=== PATIENT | male | born 1930 | race Caucasian/White ===

== ENCOUNTER 2017-05-08 11:36 | Inpatient (IN) ==
--- NOTE | 2017-05-08 11:59 | Emergency Department Note ---
Disposition Clinical Impression: Hyponatremia, Dysesthesia Disposition: Admitted As Inpatient Condition: Fair Time of Disposition: 15:36 General Adult HPI - General Chief complaint: ED Neuro Symptoms/Deficit Stated complaint: "numb, cant walk" Time Seen by Provider: 05/08/17 11:54 Source: patient, family Limitations: no limitations Nursing Notes Reviewed: Yes Vital Signs Reviewed: Yes - History of Present Illness HPI Narrative: Mr. Lopez, an 86yo male, presents from home for evaluation of sensation of imbalance, "bubbling" sensation in his lower extremities. Onset 2 days ago. Patient's sensation of imbalance has been present for the last 2 days. This morning, he fell forward onto his knees from a sitting position. Patient is also edentulous. 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 He previously was eating soft foods however, he is had increasing pain even with this. Patient's sons have attempted to supplement his diet with more soups as well as ensure liquid supplementation. Patient's sons are bedside. At baseline, patient ambulates without assistance. PMH: Dementia, GERD, hypertension, hyperlipidemia, prior MT, remote history of prostate cancer (finished tx 2008) Social: Patient lives at home alone. ROS: Pos: as above Neg: fever, chills, incontinence of bowel or bladder, trauma Pain Scale: 4 - Related Data Home Medications Medication Instructions Recorded Confirmed Lidocaine HCl [Lidocaine HCl 15 ml MM TID PRN 05/08/17 05/08/17 Viscous] Mv-Mn/FA/Vit K/Lycop/Lut/Coq10 1 tab PO DAILY 05/08/17 05/08/17 [Daily Multivitamin Capsule] [place]-3/Dha/Epa/Fish Oil [Fish Oil 1 tab PO DAILY 05/08/17 05/08/17 1,000 mg Softgel] Ranitidine HCl [Zantac] 150 mg PO BID 05/08/17 05/08/17 Simvastatin [Zocor] 40 mg PO DAILY 05/08/17 05/08/17 Triamterene/Hydrochlorothiazid 1 tab PO DAILY 05/08/17 05/08/17 [Dyazide 37.5-25 Capsule] Allergies Allergy/AdvReac Type Severity Reaction Status Date / Time No Known Allergies Allergy Verified 05/08/17 15:00 All systems ED: reviewed and negative except as stated. Review of Systems: As Per HPI Past Medical History - Past Medical History Medical history: Reports: cancer, dementia, GERD, hyperlipidemia, hypertension, myocardial infarction Psychiatric history: Reports: no psych history - Social History Smoking Status: Never smoker Alcohol use: Reports: none Drug use: Reports: none Physical Exam Vital Signs Reviewed General: Patient is alert, oriented, and in no acute distress. HEENT: No facial asymmetry. Head is normocephalic and atraumatic. PERRLA, EOMI. oral mucosa moist. Trachea midline. Cardiovascular: Heart regular rate and rhythm without clicks, rubs, gallops, or murmurs. No JVD. PMI nondisplaced. Lateral radial and posterior tibial pulses 2/40. No pedal edema. Respiratory: Symmetric chest rise with good respiratory effort. Bilateral breath sounds are clear without wheezing, crackles, or rhonchi. Abdomen: Bowel sounds present normoactive x-4 quadrants. Abdomen is soft, nondistended, and nontender. No organomegaly noted. Musculoskeletal: Spontaneously moving all extremities. Upper and lower extremity strength is 4/5 bilaterally. Neuro: Alert and oriented x4. Lower extremity sensation to light touch and proprioception intact. Psych: Patient's affect is appropriate for situation. - General Limitations: no limitations General appearance: alert, in no apparent distress Course Course Narrative: EGD performed 04/28/2017 showed small hiatal hernia and gastritis. Indication: Emergent endoscopy for possible esophageal food impaction. Suspect patient's difficulty walking and imbalance secondary to a dysesthesia from his tingling in his feet which she describes as bubbling. My physical exam, he had mild weakness generalized. Suspect he had difficulty with strength of his hip extension while rising from a seated chair causing him to fall forward onto his hands and knees. Patient is hyponatremic. Laboratory and imaging workup otherwise unremarkable. I discussed the above with the patient's son and the patient. Their agreement to admission for continued evaluation and management. I discussed the patient with the admitting hospitalist who agrees to accept the patient for continued evaluation and management of hyponatremia. Head CT 05/08/17 12:14 IMPRESSION: No acute intracranial abnormality. D/ / Linda Leigh Cha, MD / Linda Leigh Cha, MD Interpreting Provider: Linda Leigh Cha, MD Lumbar Spine CT 05/08/17 12:14 IMPRESSION: No acute osseous abnormality on noncontrast CT of the lumbar spine. The patient has mild degenerative changes and multilevel mild disc bulges. No bony destruction is noted. Other findings as above. D/ / 05/08/2017 13:53:00 Mel Yadav MD / viet Interpreting Provider: Mel Yadav MD Pelvis CT 05/08/17 12:14 IMPRESSION: No evidence of fracture. Large stool burden. D/ / Breezy Ndiaye MD / Breezy Ndiaye MD Interpreting Provider: Breezy Ndiaye MD Vital Signs Temperature 98 F 05/08/17 11:40 Pulse Rate 69 05/08/17 11:40 Respiratory Rate 14 05/08/17 11:40 Blood Pressure 117/71 05/08/17 11:40 O2 Sat by Pulse Oximetry 94 05/08/17 11:40 Temperature 97.9 F 05/08/17 17:27 Pulse Rate 62 05/08/17 17:27 Respiratory Rate 16 05/08/17 17:27 Blood Pressure 155/66 05/08/17 17:27 O2 Sat by Pulse Oximetry 95 05/08/17 17:58 Oxygen Delivery Oxygen Delivery Room Air Medical Decision Making - Medical Records Medical records reviewed: Yes I reviewed the patient's medical records. - Lab Data Result diagrams: 05/08/17 13:35 05/08/17 13:08 Lab Results 05/08/17 05/08/17 05/08/17 Range/Units 10:05 13:08 13:08 WBC (4.3-11.1) K/mcL RBC (4.19-5.50) M/mcL Hgb (12.9-16.9) g/dL Hct (37.5-50.1) % MCV (83.0-100.0) fL MCH (28.0-33.3) pg MCHC (31.6-35.5) g/dL RDW (11.5-14.5) % Plt Count (140-400) K/mcL MPV (9.4-12.4) fL Immature Gran % (0-4) % Seg Neutrophils % % Lymphocytes % % Monocytes % % Eosinophils % % Basophils % % Neutrophils # (1.6-8.9) K/mcL Lymphocytes # (0.6-4.6) K/mcL Monocytes # (0.0-1.3) K/mcL Eosinophils # (0.0-0.6) K/mcL Basophils # (0.0-0.2) K/mcL Immature Plt Fraction (1.1-6.1) % ESR (0-10) mm/hr Sodium 129 L (136-145) mEq/L Potassium 3.7 (3.5-5.1) mEq/L Chloride 91 L (98-107) mEq/L Carbon Dioxide 31 H (23-29) mEq/L BUN 12 (8-23) mg/dL Creatinine 0.90 (0.70-1.30) mg/dL Est GFR ( Amer) > 60 (> 60) Est GFR (Non-Af Amer) > 60 (> 60) BUN/Creatinine Ratio 13 (6-26) Glucose 104 (70-105) mg/dL Calculated Osmolality 268 L (280-300) Calcium 9.6 (8.6-10.3) mg/dL Magnesium 1.8 (1.6-2.6) mg/dL Creatine Kinase 22 L (30-223) Units/L C-Reactive Protein < 5 (Less than 10) mg/L Urine Color (Yellow) Urine Clarity (Clear) Urine pH (5.0-8.0) pH Units Ur Specific [place] (1.010-1.025) Urine Protein (Neg-Trace) mg/dL Urine Glucose (UA) (Normal) mg/dL Urine Ketones (Negative) mg/dL Urine Blood (Negative) Urine Nitrite (Negative) Urine Bilirubin (Negative) Urine Urobilinogen (Normal) mg/dL Ur Leukocyte Esterase (Negative) Urine Microscopic RBC (0-3) per hpf Urine Microscopic WBC (0-3) per hpf Ur Squamous Epith Cells (None-Few) per lpf Urine Bacteria (None-Few) per hpf Hyaline Casts (None-Few) per lpf Ur Culture Indicated? (NO) Specimen Rejected Clotted 05/08/17 05/08/17 05/08/17 Range/Units 13:35 13:35 14:19 WBC 4.9 (4.3-11.1) K/mcL RBC 4.41 (4.19-5.50) M/mcL Hgb 13.1 (12.9-16.9) g/dL Hct 38.0 (37.5-50.1) % MCV 86.2 (83.0-100.0) fL MCH 29.7 (28.0-33.3) pg MCHC 34.5 (31.6-35.5) g/dL RDW 13.2 (11.5-14.5) % Plt Count 353 (140-400) K/mcL MPV 8.4 L (9.4-12.4) fL Immature Gran % 0.2 (0-4) % Seg Neutrophils % 55.7 % Lymphocytes % 26.8 % Monocytes % 12.6 % Eosinophils % 3.7 % Basophils % 1.0 % Neutrophils # 2.7 (1.6-8.9) K/mcL Lymphocytes # 1.3 (0.6-4.6) K/mcL Monocytes # 0.6 (0.0-1.3) K/mcL Eosinophils # 0.2 (0.0-0.6) K/mcL Basophils # 0.1 (0.0-0.2) K/mcL Immature Plt Fraction 1.7 (1.1-6.1) % ESR 35 H (0-10) mm/hr Sodium (136-145) mEq/L Potassium (3.5-5.1) mEq/L Chloride (98-107) mEq/L Carbon Dioxide (23-29) mEq/L BUN (8-23) mg/dL Creatinine (0.70-1.30) mg/dL Est GFR ( Amer) (> 60) Est GFR (Non-Af Amer) (> 60) BUN/Creatinine Ratio (6-26) Glucose (70-105) mg/dL Calculated Osmolality (280-300) Calcium (8.6-10.3) mg/dL Magnesium (1.6-2.6) mg/dL Creatine Kinase (30-223) Units/L C-Reactive Protein (Less than 10) mg/L Urine Color Yellow (Yellow) Urine Clarity Cloudy A (Clear) Urine pH 8.0 (5.0-8.0) pH Units Ur Specific [place] 1.013 (1.010-1.025) Urine Protein Negative (Neg-Trace) mg/dL Urine Glucose (UA) Normal (Normal) mg/dL Urine Ketones Negative (Negative) mg/dL Urine Blood Negative (Negative) Urine Nitrite Negative (Negative) Urine Bilirubin Negative (Negative) Urine Urobilinogen Normal (Normal) mg/dL Ur Leukocyte Esterase Negative (Negative) Urine Microscopic RBC 0-3 (0-3) per hpf Urine Microscopic WBC 0-3 (0-3) per hpf Ur Squamous Epith Cells Few (None-Few) per lpf Urine Bacteria None Seen (None-Few) per hpf Hyaline Casts None Seen (None-Few) per lpf Ur Culture Indicated? NO (NO) Specimen Rejected - EKG Data EKG #1 EKG attestation: Yes I reviewed and interpreted this EKG. EKG results narrative: EKG dated 05/08/17 at 11:56 interpreted as sinus rhythm with a rate of 61. First -degree AV block with MT 270. Normal axis. Nonspecific ST-T changes. Compared to previous EKG dated showing no acute ischemic changes.
[2017-05-08 13:42] LABS: BUN/Creatinine Ratio 13 (6-26); Blood Urea Nitrogen 12 mg/dL (8-23); Calcium 9.6 mg/dL (8.6-10.3); Carbon Dioxide 31 mEq/L (23-29); Chloride 91 mEq/L (98-107); Glucose 104 mg/dL (70-105); Magnesium 1.8 mg/dL (1.6-2.6); Osmolality,Calculated 268 (280-300); Potassium 3.7 mEq/L (3.5-5.1); Sodium 129 mEq/L (136-145); eGFR For African Americans > 60 (> 60); eGFR For Non-African Americans > 60 (> 60)
[2017-05-08 13:42] LABS: Basophils # 0.1 K/mcL (0.0-0.2); Eosinophils # 0.2 K/mcL (0.0-0.6); Eosinophils % 3.7 %; Immature Granulocytes % 0.2 % (0-4); Immature Platelets 1.7 % (1.1-6.1); Lymphocytes # 1.3 K/mcL (0.6-4.6); Lymphocytes % 26.8 %; Mean Corpuscular HGB Conc 34.5 g/dL (31.6-35.5); Mean Corpuscular Hemoglobin 29.7 pg (28.0-33.3); Mean Corpuscular Volume 86.2 fL (83.0-100.0); Mean Platelet Volume 8.4 fL (9.4-12.4); Monocytes # 0.6 K/mcL (0.0-1.3); Monocytes % 12.6 %; Neutrophils # 2.7 K/mcL (1.6-8.9); Platelet Count 353 K/mcL (140-400); Red Blood Count 4.41 M/mcL (4.19-5.50); Red Cell Distribution Width 13.2 % (11.5-14.5); Segmented Neutrophils % 55.7 %
[2017-05-08 13:44] LABS: Hemoglobin 13.1 g/dL (12.9-16.9)
--- NOTE | 2017-05-08 14:05 | Emergency Department Note ---
START Narrative - START START: I examined this patient and my medical decision-making was reviewed with the Resident Physician. I agree with the documented findings, disposition and treatment plan as described except to the extent set forth below. 86-year-old male presents to the ER with dysesthesias and tingling in his legs bilaterally. Patient feels weak in his legs bilaterally as well. Denies any bowel or bladder incontinence. No recent change in medications. Denies any problems with his arms. No facial involvement. No speech or vision changes. DTR's intact. CT's nonacute no mag or K problems will admit neuro consult as well pt lives alone and is at high risk of falls
[2017-05-08 14:26] LABS: Bilirubin,Urine Negative (Negative); Blood,Urine Negative (Negative); Clarity,Urine Cloudy (Clear); Color,Urine Yellow (Yellow); Glucose,Urine (UA) Normal (Normal); Ketones,Urine Negative (Negative); Leukocyte Esterase,Urine Negative (Negative); Nitrite,Urine Negative (Negative); Protein,Urine Negative (Neg-Trace); Specific Gravity,Urine 1.013 (1.010-1.025); Urobilinogen,Urine Normal (Normal)
[2017-05-08 14:28] LABS: Bacteria,Urine None Seen per hpf (None-Few); Hyaline Casts,Urine None Seen per lpf (None-Few); RBC,Urine 0-3 per hpf (0-3); Squamous Epithelial Cell,Urine Few per lpf (None-Few); WBC,Urine 0-3 per hpf (0-3)
[2017-05-08] MEDS ORDERED: Acetaminophen 325 MG TABLET PO PRN (15:48)
[2017-05-08] MEDS ORDERED: *HR* OxyCODONE Immed Rel 5 MG TABLET PO PRN (15:48)
[2017-05-08] MEDS ORDERED: Ondansetron 4 MG/2 ML VIAL IVP PRN (15:48)
[2017-05-08] MEDS ORDERED: Naloxone 0.4 MG/ML INJ IVP PRN (15:48)
--- NOTE | 2017-05-08 15:54 | Internal Med History&Physical ---
Date of Encounter: 05/08/17 Time of Encounter: 15:52 Assessment and Plan (1) Generalized weakness Current visit: Yes Status: Acute Unclear etiology Since the patient is on simvastatin and is complaining of myalgias we will check a CK, hold statin Check MRIs of the C-spine and thoracic and lumbar spines Unlikely [place], monitor with neuro checks Check orthostatics Fall precautions Physical therapy evaluation Omeprazole for J prophylaxis and symptoms heparin for DVT prophylaxis. The patient will be admitted for observation. Full code. Time spent on this admission 40 minutes (2) Hyperlipidemia Current visit: Yes Status: Acute Qualifiers: Hyperlipidemia type: unspecified Qualified Code(s): E78.5 - Hyperlipidemia , unspecified (3) Hyponatremia Current visit: Yes Status: Acute Check urine sodium and osmolality Monitor sodium, continue fluids for now (4) Dysesthesia Current visit: Yes Status: Acute Consider neurology consult if not improving (5) Hypertension Current visit: Yes Status: Acute Qualifiers: Hypertension type: essential hypertension Qualified Code(s): I10 - Essential (primary) hypertension Internal Medicine - H&P: HPI Chief complaint: Generalized weakness and pain Admitted From: Emergency Dept History of present illness: Mr. Lopez is a 86 year old male with a past medical history HYPERTENSION, hyperlipidemia, dementia, CAD, prostate cancer, comes to the emergency room complaining of bilateral leg weakness and numbness that started less than 2 days ago. Admitted today, he fell on his knees. Patient has dementia and is a very poor historian. Family helped with the story. Patient is in a stocking and is complaining of generalized weakness but no CK has been done yet. Also leg weakness his progressing. CT scan of the head, lumbar spine and pelvis showed only mild degenerative changes with no acute findings. Sodium is 129 chloride is 91. Patient complains of mandibular pain thought to be due to mandibular degeneration. Denies any chest pain or shortness of breath. No fevers Past Med Surg Social Fam HX - Past Medical History Medical history: cancer (Prostate cancer), coronary artery disease, dementia, GERD, hyperlipidemia, hypertension, myocardial infarction, other (Mandibular degeneration, hiatal hernia, gastritis, esophageal impaction in the past) Psychiatric history: no psych history - Past Surgical History Surgical History: other (Prostate surgery, ear tubes) - Social History Smoking Status: Never smoker Alcohol use: none Drug use: none - Additional Family History Additional family history: Mother with CHF and father with prostate cancer Internal Medicine - H&P: Meds Lidocaine HCl [Lidocaine HCl Viscous] 15 ml MM TID PRN 05/08/17 [History] Mv-Mn/FA/Vit K/Lycop/Lut/Coq10 [Daily Multivitamin Capsule] 1 tab PO DAILY 05/08 [History] [place]-3/Dha/Epa/Fish Oil [Fish Oil 1,000 mg Softgel] 1 tab PO DAILY 05/08/17 [ History] Ranitidine HCl [Zantac] 150 mg PO BID 05/08/17 [History] Simvastatin [Zocor] 40 mg PO DAILY 05/08/17 [History] Triamterene/Hydrochlorothiazid [Dyazide 37.5-25 Capsule] 1 tab PO DAILY [History] 3 Allergy/AdvReac Type Severity Reaction Status Date / Time No Known Allergies Allergy Verified 05/08/17 15:00 All Systems PM: A 10-system review of systems was performed and is negative for pertinent findings except as documented above in the HPI. Review of systems: No abdominal pain, no diarrhea. Other systems out of the 10 reviewed were negative - Constitutional Vitals: Temp Pulse Resp BP Pulse Ox 98 F 72 18 136/68 98 05/08/17 11:40 05/08/17 14:20 05/08/17 14:20 05/08/17 14:20 05/08/17 14:20 General appearance: Present: A&O X 3 - Head Head exam: Present: atraumatic, normocephalic - Eye Eye exam: Present: PERRL, conjuntiva pink, sclera anicteric Pupils: Present: PERRL - Neck Neck exam general surgery: Present: supple, trachea midline. Absent: lymphadenopathy - Respiratory Respiratory exam: Present: CTAB. Absent: accessory muscle use, rales, rhonchi, wheezes - Cardiovascular Cardiovascular exam: Present: RRR, +S1, +S2. Absent: diastolic murmur, gallop, rubs, systolic murmur - GI/Abdominal GI/Abdominal exam: Present: normal bowel sounds, soft, no peritoneal signs. Absent: distended, tenderness - Extremities Exam Extremities exam: Present: warm, radial pulses palpable and symmetrical. Absent : calf tenderness, cyanotic, pedal edema - Neurological Exam Neurological exam: Present: CN II-XII intact, oriented X3, no focal deficits. Absent: pronater drift, facial droop, speech deficit Additional comments: Bilateral shoulder tenderness, unable to raise his arms completely. Bilateral lower extremity weakness 4 out of 5. Reflexes are preserved - Skin Skin exam: Present: dry, intact Internal Med - H&P Results - Labs CBC & Chem 7: 05/08/17 13:35 05/08/17 13:08 Labs: Short CBC 05/08/17 Range/Units 13:35 WBC 4.9 (4.3-11.1) K/mcL Hgb 13.1 (12.9-16.9) g/dL Hct 38.0 (37.5-50.1) % Plt Count 353 (140-400) K/mcL Neutrophils # 2.7 (1.6-8.9) K/mcL BMP 05/08/17 13:08 Sodium 129 L Potassium 3.7 Chloride 91 L Carbon Dioxide 31 H BUN 12 Creatinine 0.90 Glucose 104 Calcium 9.6 Urine 05/08/17 Range/Units 14:19 Urine Color Yellow (Yellow) Urine Clarity Cloudy A (Clear) Urine pH 8.0 (5.0-8.0) pH Units Ur Specific [place] 1.013 (1.010-1.025) Urine Protein Negative (Neg-Trace) mg/dL Urine Glucose (UA) Normal (Normal) mg/dL - Impressions ITS Impressions Head CT 05/08/17 12:14 IMPRESSION: No acute intracranial abnormality. D/ / Linda Leigh Cha, MD / Linda Leigh Cha, MD Interpreting Provider: Linda Leigh Cha, MD Lumbar Spine CT 05/08/17 12:14 IMPRESSION: No acute osseous abnormality on noncontrast CT of the lumbar spine. The patient has mild degenerative changes and multilevel mild disc bulges. No bony destruction is noted. Other findings as above. D/ / 05/08/2017 13:53:00 Mel Yadav MD / viet Interpreting Provider: Mel Yadav MD Pelvis CT 05/08/17 12:14 IMPRESSION: No evidence of fracture. Large stool burden. D/ / Breezy Ndiaye MD / Breezy Ndiaye MD Interpreting Provider: Breezy Ndiaye MD
[2017-05-08 15:57] LABS: Creatine Kinase 22 Units/L (30-223)
[2017-05-08] MEDS ORDERED: predniSONE 20 MG TABLET PO ONE (16:00)
[2017-05-08] MEDS: Lactulose Oral Soln 20 GM/30 ML UDC PO SCH (17:53)
[2017-05-08] MEDS: *HR* Heparin 5,000 UNIT/ML VIAL SQ SCH (17:53)
[2017-05-08] MEDS: 0.9 % Sodium Chloride 1,000 ML IVC SCH (17:53)
[2017-05-08] MEDS: Famotidine 20 MG TABLET PO SCH (19:42)
[2017-05-09 03:33] LABS: Sodium, Urine 93.2 mEq/L
[2017-05-09] MEDS: *HR* Heparin 5,000 UNIT/ML VIAL SQ SCH ×2 (05:08→17:48)
[2017-05-09] MEDS: Famotidine 20 MG TABLET PO SCH (07:58)
[2017-05-09] MEDS: Lidocaine Viscous Oral Soln 15 ML SOLUTION MM PRN ×2 (07:58→17:48)
[2017-05-09] MEDS: Aspirin Enteric Coated 81 MG Tablet PO SCH (07:58)
[2017-05-09] MEDS: Lactulose Oral Soln 20 GM/30 ML UDC PO SCH (07:58)
[2017-05-09] MEDS: 0.9 % Sodium Chloride 1,000 ML IVC SCH (07:58)
[2017-05-09 09:31] LABS: BUN/Creatinine Ratio 14 (6-26); Blood Urea Nitrogen 12 mg/dL (8-23); Calcium 8.9 mg/dL (8.6-10.3); Carbon Dioxide 26 mEq/L (23-29); Chloride 96 mEq/L (98-107); Glucose 142 mg/dL (70-105); Osmolality,Calculated 272 (280-300); Potassium 3.3 mEq/L (3.5-5.1); Sodium 130 mEq/L (136-145); eGFR For African Americans > 60 (> 60); eGFR For Non-African Americans > 60 (> 60)
--- NOTE | 2017-05-09 17:23 | Internal Med Progress Note ---
Date of Encounter: 05/09/17 Time of Encounter: 17:21 - Assessment and plan (1) Hyponatremia Current Visit: Yes Status: Acute Assessment and plan: Follow sodium level which is slowly rising, now 130 Urine osmolality 400 urine sodium 93.2 Discontinue diuretic (2) Dysesthesia Current Visit: Yes Status: Acute Assessment and plan: Neuro consult it and saw the patient today (3) Generalized weakness Current Visit: Yes Status: Acute Assessment and plan: Patient states he is feeling better PT/OT Patient out of bed to chair Hold simvastatin secondary to myalgias ESR 35. (4) Hypertension Current Visit: Yes Status: Acute Assessment and plan: Stopped Dyazide secondary to hyponatremia Monitor blood pressure We will add low-dose Norvasc Qualifiers: Hypertension type: essential hypertension Qualified Code(s): I10 - Essential (primary) hypertension (5) Hyperlipidemia Current Visit: Yes Status: Acute Assessment and plan: Simvastatin on hold secondary myalgias Check check lipid panel in a.m. Qualifiers: Hyperlipidemia type: unspecified Qualified Code(s): E78.5 - Hyperlipidemia , unspecified - Subjective Interval history: Patient still complain of some generalized weakness. He complains of inability to swallow his food without some coughing. . Patient is a very poor historian secondary to his dementia. Denies chest pain shortness of breath fever chills abdominal pain or discomfort or headache. - Constitutional Vitals: Temp Pulse Resp BP Pulse Ox 98.7 F 65 16 150/79 96 05/09/17 16:38 05/09/17 16:38 05/09/17 16:38 05/09/17 16:38 05/09/17 16:38 General appearance: Present: A&O X 3, pleasant, no acute distress Exam: Poor historian - Head Head exam: Present: atraumatic, normocephalic - Eye Eye exam: Present: PERRL, conjuntiva pink, sclera anicteric Pupils: Present: PERRL - ENT Additional comments: Patient has no teeth, gums pink - Neck Neck exam general surgery: Present: supple, trachea midline. Absent: lymphadenopathy - Respiratory Respiratory exam: Present: CTAB. Absent: accessory muscle use, rales, rhonchi, wheezes - Cardiovascular Cardiovascular exam: Present: RRR, +S1, +S2. Absent: diastolic murmur, gallop, rubs, systolic murmur - GI/Abdominal GI/Abdominal exam: Present: normal bowel sounds, soft, no peritoneal signs. Absent: distended, tenderness - Extremities Exam Extremities exam: Present: warm, radial pulses palpable and symmetrical. Absent : calf tenderness, cyanotic - Neurological Exam Neurological exam: Present: alert, oriented X3, no focal deficits. Absent: pronater drift, facial droop, speech deficit - Skin Skin exam: Present: dry, intact, warm Internal Medicine: Result - Labs CBC & Chem 7: 05/08/17 13:35 05/09/17 03:43 Labs: BMP 05/09/17 03:43 Sodium 130 L Potassium 3.3 L Chloride 96 L Carbon Dioxide 26 BUN 12 Creatinine 0.87 Glucose 142 H Calcium 8.9 Consult Discharge Plan - Plan Referrals: Milton Garcia MD [Primary Care Provider] -
[2017-05-10 05:51] LABS: BUN/Creatinine Ratio 13 (6-26); Blood Urea Nitrogen 13 mg/dL (8-23); Carbon Dioxide 24 mEq/L (23-29); Chloride 99 mEq/L (98-107); Glucose 136 mg/dL (70-105); Osmolality,Calculated 276 (280-300); Potassium 3.4 mEq/L (3.5-5.1); Sodium 132 mEq/L (136-145); eGFR For African Americans > 60 (> 60); eGFR For Non-African Americans > 60 (> 60)
[2017-05-10] MEDS: *HR* Heparin 5,000 UNIT/ML VIAL SQ SCH ×2 (05:57→17:58)
--- NOTE | 2017-05-10 08:30 | Internal Med Progress Note ---
Date of Encounter: 05/10/17 Time of Encounter: 08:15 - Assessment and plan (1) Generalized weakness Current Visit: Yes Status: Acute Assessment and plan: Sudden onset 2 days ago, son reports improvement. BLE and BUE strong and equal, but numbness and tingling remain to BLE, L > R. Head CT negative. MRIs have been cancelled due to possibilty of metal parts in implants in ears. PT had surgery in the 1970s and family is unsure if he had a repair to ears or implants placed. PT/OT consultations still pending Neuro consult entered today and Dr. Tam will see pt, I appreciate his recommendations and consultation. Continue fall precautions and bed alarm PT/OT consultations Neuro consultation (2) Hypokalemia Current Visit: Yes Status: Acute Assessment and plan: Improving. Continue KCL 20meq po bid. Continue to monitor labs. (3) Dementia Current Visit: Yes Status: Acute Assessment and plan: Per son, pt is at his baseline. Continue to monitor for safety: fall precautions and bed alarm Qualifiers: Dementia type: unspecified type Qualified Code(s): F03.90 - Unspecified dementia without behavioral disturbance (4) Hyponatremia Current Visit: Yes Status: Acute Assessment and plan: Improving. Continue IVF hydration and monitor labs. Diuretic held. (5) Dysesthesia Current Visit: Yes Status: Acute Assessment and plan: Neuro consulted. Numbness and tingling remain unchanged from arrival, left > right. Strength has returned to baseline. Electrolytes improving, continue to monitor and replace as needed. (6) Hypertension Current Visit: Yes Status: Chronic Assessment and plan: Stopped Dyazide secondary to hyponatremia Monitor blood pressure, mildly hypertensive Add Norvasc 5mg po daily Qualifiers: Hypertension type: essential hypertension Qualified Code(s): I10 - Essential (primary) hypertension (7) Hyperlipidemia Current Visit: Yes Status: Chronic Assessment and plan: Chronic. Due to weakness, statin has been held. Will consider restarting after discharge, most likely not the cause of weakness. Qualifiers: Hyperlipidemia type: unspecified Qualified Code(s): E78.5 - Hyperlipidemia , unspecified (8) DVT prophylaxis Current Visit: Yes Status: Acute Assessment and plan: Heparin SQ BID. Pt up to chair. - Time Spent With Patient less than 15 minutes - Subjective Interval history: Pt was seen and assess at bedside at 0815 this a.m., son was present. Pt is alert and awake, answers most questions appropriately. He is not oriented to month, year, or president, however is aware that he is at the hospital. Son reports that pt was able to walk and was at his baseline the day prior to admission. Son also reports improvement to strength today. Pt still has numbness and tingling to BLE, L> R. He denies headache, n/v, dizziness, or vision changes, denies loss of bowel or bladder, and denies any recent injury. - Constitutional Vitals: Temp Pulse Resp BP Pulse Ox 97.7 F 93 18 160/88 95 05/10/17 07:26 05/10/17 07:26 05/10/17 07:26 05/10/17 07:26 05/10/17 07:26 General appearance: Present: cooperative, A&O X 1, A&O X 3, pleasant, no acute distress, answers questions appropriately - Head Head exam: Present: atraumatic, normal inspection, normocephalic - Eye Eye exam: Present: normal appearance, PERRL, conjuntiva pink, sclera anicteric Pupils: Present: PERRL - ENT ENT exam: Present: mucous membranes dry, mucous membranes moist, normal external ear exam - Neck Neck exam general surgery: Present: normal inspection, supple, trachea midline. Absent: lymphadenopathy, tenderness - Respiratory Respiratory exam: Present: CTAB. Absent: accessory muscle use, chest wall tenderness, rales, respiratory distress, rhonchi, wheezes - Cardiovascular Cardiovascular exam: Present: RRR, +S1, +S2. Absent: diastolic murmur, gallop, rubs, systolic murmur - GI/Abdominal GI/Abdominal exam: Present: normal bowel sounds, soft. Absent: distended, hepatomegaly, tenderness - Extremities Exam Extremities exam: Present: normal capillary refill, normal inspection, warm, radial pulses palpable and symmetrical. Absent: calf tenderness, cyanotic, pedal edema - Neurological Exam Neurological exam: Present: alert, altered, no focal deficits, strengths equal and symetr throughout. Absent: oriented X3, pronater drift, facial droop, speech deficit - Skin Skin exam: Present: dry, intact, normal color, warm. Absent: rash Internal Medicine: Result - Labs CBC & Chem 7: 05/08/17 13:35 05/10/17 04:42 Labs: [facility] 05/10/17 04:42 Sodium 132 L Potassium 3.4 L Chloride 99 Carbon Dioxide 24 BUN 13 Creatinine 0.99 Glucose 136 H Calcium 9.0 Consult Discharge Plan - Plan Referrals: Milton Garcia MD [Primary Care Provider] -
[2017-05-10] MEDS: Lidocaine Viscous Oral Soln 15 ML SOLUTION MM PRN (09:05)
[2017-05-10] MEDS: Aspirin Enteric Coated 81 MG Tablet PO SCH (09:55)
[2017-05-10] MEDS: Multivit/Ca/Min/Fe/FA 1 TAB TABLET PO SCH (09:55)
[2017-05-10] MEDS: Famotidine 20 MG TABLET PO SCH (09:55)
[2017-05-10] MEDS: amLODIPine 5 MG TABLET PO SCH (09:55)
[2017-05-10] MEDS: (Omega-3/Dha/Epa/Fish Oil [Fish Oil 1,000 Mg Softgel]) PO SCH (09:56)
[2017-05-10] MEDS: Lactulose Oral Soln 20 GM/30 ML UDC PO SCH (09:56)
--- NOTE | 2017-05-10 10:19 | Neurology - Consult Note ---
<MaureenTyrel Martin - Last Filed: 05/10/17 11:10> Date of Encounter: 05/10/17 Time of Encounter: 10:17 Assessment and Plan (1) Generalized weakness Current Visit: Yes Status: Acute Patient reports several months of lower extremity weakness and numbness. This is described as a balance problem rather than a muscle problem. Given his motor and sensory deficits this could be related to a peripheral neuropathy as well as an underlying metabolic or cause including hyponatremia. Head CT, lumbar CT were unremarkable for any acute changes. The fact that the patient is improving as his sodium improves would make this more likely. The patient was also noted to be taking hydrochlorothiazide which could be contributing to his hyponatremia. Other metabolic causes including hypokalemia can also be considered. We will check for B12 and folate. Recommend PT and OT in correction of his electrolytes by primary team. (2) Hyponatremia Current Visit: Yes Status: Acute History of Present Illness Chief complaint: Weakness HPI: Mr. Lopez is a 86 year old male with history of hypertension who presents with generalized weakness. Patient states that over the last 3 months he has had progressive weakness in his lower extremities with multiple falls. He states his feels more like a balance problem then a strength problem. He states he has this before. He denies hitting his head or loss of consciousness during any of these events. Patient states that he feels much better since his admission to the hospital. He feels like he is back to normal. He states he has been up walking around without difficulty. He did state that he had lower extremity numbness and tingling that has resolved at this time. He denies any fever, chills, back pain, headache, upper extremity deficits, bowel or bladder dysfunction. Past Med Surg Social Fam HX - Past Medical History Medical history: cancer, dementia, GERD, hyperlipidemia, hypertension, myocardial infarction Psychiatric history: no psych history - Past Surgical History Surgical History: other - Social History Smoking Status: Never smoker Alcohol use: none Drug use: none Medications and Allergies Lidocaine HCl [Lidocaine HCl Viscous] 15 ml MM TID PRN 05/08/17 [History] Mv-Mn/FA/Vit K/Lycop/Lut/Coq10 [Daily Multivitamin Capsule] 1 tab PO DAILY 05/08 [History] [place]-3/Dha/Epa/Fish Oil [Fish Oil 1,000 mg Softgel] 1 tab PO DAILY 05/08/17 [ History] Ranitidine HCl [Zantac] 150 mg PO BID 05/08/17 [History] Simvastatin [Zocor] 40 mg PO DAILY 05/08/17 [History] Triamterene/Hydrochlorothiazid [Dyazide 37.5-25 Capsule] 1 tab PO DAILY [History] 3 Allergy/AdvReac Type Severity Reaction Status Date / Time No Known Allergies Allergy Verified 05/08/17 15:00 All Systems: A 10-system review of systems was performed and is negative for pertinent findings except as documented above in the HPI. Physical Examination - Vital Signs Vital Signs: Initial Vital Signs Temp Pulse Resp BP Pulse Ox 98 F 69 14 117/71 94 05/08/17 11:40 05/08/17 11:40 05/08/17 11:40 05/08/17 11:40 05/08/17 11:40 - Constitutional General appearance: comfortable - Neurologic Sensorimotor examination: intact Detailed motor examination: grossly full strength in all extremities Motor examination - right side: 5/5: deltoids, biceps, triceps, wrist flexion, wrist extension, doctor of dental medicine, hip flexors, tibialis Anterior, quadriceps, toe extension (EHL), plantarflexion Motor examination - left side: 5/5: deltoids, biceps, triceps, wrist flexion, wrist extension, hip flexors, doctor of dental medicine, quadriceps, tibialis Anterior, toe extension (EHL), plantarflexion Detailed sensory examination: intact Reflexes: Biceps: 3+, Brachioradialis: 3+, Patella: 3+, Achilles: 3+ Mental Status Examination: awake, alert, oriented to person, oriented to place, follows commands appropriately, answers questions appropriately, no agnosia, no aphasia, no aproxia Cranial nerve examination: EOMI (sluggish ocular movements), visual zapien intact, sensory to face intact, no facial asymmetry is present, no dysarthria, tongue protrudes midline, no atrophy or facial fasiculations present Cerebellar examination: performs finger to nose and heel to jacob symmetrically without ataxia Results - Laboratory Findings CBC and BMP: 05/08/17 13:35 05/10/17 04:42 Abnormal lab findings: Abnormal lab results MPV 8.4 fL (9.4-12.4) L 05/08/17 13:35 ESR 35 mm/hr (0-10) H 05/08/17 13:35 Sodium 132 mEq/L (136-145) L 05/10/17 04:42 Potassium 3.4 mEq/L (3.5-5.1) L 05/10/17 04:42 Glucose 136 mg/dL (70-105) H 05/10/17 04:42 Calculated Osmolality 276 (280-300) L 05/10/17 04:42 Creatine Kinase 22 Units/L (30-223) L 05/08/17 13:08 Urine Clarity Cloudy (Clear) A 05/08/17 14:19 Consult Discharge Plan - Plan Referrals: Milton Garcia MD [Primary Care Provider] - <Tyrel Tam - Last Filed: 05/10/17 16:07> Date of Encounter: 05/10/17 Time of Encounter: 15:54 Assessment and Plan (1) Acute right hemiparesis Current Visit: Yes Status: Acute Audiologic examination I do fine weakness of the right upper extremity. Muscle strength in all muscles is 4/5. I also find weakness of the muscles of the right lower extremity. He has normal strength of the left upper and left lower extremities. No involuntary movements are identified. Sensory exam is normal. 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 I find no evidence to suspect Guillain[place]. His deficits are already improving. He denies any changes in medications, I find no other metabolic problems to explain his issues. I would recommend we obtain carotid Doppler study and echocardiogram. I will order a repeat CT scan of the head. I will recommend adding Plavix to his daily regimen and discontinuing the aspirin. Risk factor management is paramount. Recommend stroke protocol orders. History of Present Illness HPI: The chart was reviewed, patient was seen and examined. He states that on that admission he had balance difficulties and several falls. However now he feels closer to his baseline. He has been out of bed ambulating to the bathroom and states that he feels back to normal. I did ask about back pain which she denies , he denies leg pain. Denies headaches. He states that his speech might be somewhat off. He denied visual changes denied difficulty swallowing. He denied any numbness or tingling of the legs. 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 He does have stroke risk factors. I did ask about medication changes which is denied. All Systems: A 10-system review of systems was performed and is negative for pertinent findings except as documented above in the HPI. Review of Systems: Ten point review of systems is consistent with the history of present illness and otherwise negative. Physical Examination - Vital Signs Vital Signs: Initial Vital Signs Temp Pulse Resp BP Pulse Ox 98 F 69 14 117/71 94 05/08/17 11:40 05/08/17 11:40 05/08/17 11:40 05/08/17 11:40 05/08/17 11:40 - Constitutional General appearance: comfortable - Neurologic Sensorimotor examination: intact Motor examination - right side: 4/5: deltoids, biceps, triceps, doctor of dental medicine, hip flexors, tibialis Anterior, quadriceps, toe extension (EHL), plantarflexion Motor examination - left side: 5/5: deltoids, biceps, triceps, hip flexors, doctor of dental medicine , quadriceps, tibialis Anterior, toe extension (EHL), plantarflexion Cranial nerve examination: no dysarthria, hearing is intact symmetrically Results - Laboratory Findings CBC and BMP: 05/08/17 13:35 05/10/17 04:42 Abnormal lab findings: Abnormal lab results MPV 8.4 fL (9.4-12.4) L 05/08/17 13:35 ESR 35 mm/hr (0-10) H 05/08/17 13:35 Sodium 132 mEq/L (136-145) L 05/10/17 04:42 Potassium 3.4 mEq/L (3.5-5.1) L 05/10/17 04:42 Glucose 136 mg/dL (70-105) H 05/10/17 04:42 Calculated Osmolality 276 (280-300) L 05/10/17 04:42 Creatine Kinase 22 Units/L (30-223) L 05/08/17 13:08 Folate > 44.6 ng/mL (3.0-16.0) H 05/10/17 10:27 Urine Clarity Cloudy (Clear) A 05/08/17 14:19
[2017-05-10 11:18] LABS: Vitamin B12 415 pg/mL (250-1100)
[2017-05-10 12:58] LABS: Folate > 44.6 ng/mL (3.0-16.0)
--- NOTE | 2017-05-10 17:26 | Electrocardiograph Report ---
[address] [place], [place] [address] Test Date: 2017-05-08 Pat Name: Trevor Lopez Department: 103 Room: 3B24 Gender: M Donor Services Technician: : [id number] Requested By: Fede Balderrama Order Number: [id number] Reading MD: Luiz Lackey Measurements Intervals [place] Rate: 61 P: 33 UT: 270 QRS: 27 QRSD: 92 T: 31 QT: 393 QTc: 395 Interpretive Statements SINUS RHYTHM WITH FIRST DEGREE AV BLOCK Electronically Signed On 05-10-2017 17:24:33 EST by Luiz Lackey
[2017-05-11 05:22] LABS: Basophils % 0.2 %; Eosinophils % 0.2 %; Hematocrit 39.3 % (37.5-50.1); Hemoglobin 13.4 g/dL (12.9-16.9); Immature Granulocytes % 0.2 % (0-4); Lymphocytes % 11.6 %; Mean Corpuscular HGB Conc 34.1 g/dL (31.6-35.5); Mean Corpuscular Hemoglobin 29.6 pg (28.0-33.3); Mean Corpuscular Volume 86.9 fL (83.0-100.0); Mean Platelet Volume 9.4 fL (9.4-12.4); Monocytes % 10.9 %; Neutrophils # 6.7 K/mcL (1.6-8.9); Platelet Count 313 K/mcL (140-400); Red Blood Count 4.52 M/mcL (4.19-5.50); Red Cell Distribution Width 13.6 % (11.5-14.5); Segmented Neutrophils % 76.9 %
[2017-05-11] MEDS: *HR* Heparin 5,000 UNIT/ML VIAL SQ SCH (05:33)
[2017-05-11 05:50] LABS: BUN/Creatinine Ratio 14 (6-26); Blood Urea Nitrogen 12 mg/dL (8-23); Calcium 8.7 mg/dL (8.6-10.3); Carbon Dioxide 26 mEq/L (23-29); Chloride 101 mEq/L (98-107); Glucose 126 mg/dL (70-105); Osmolality,Calculated 275 (280-300); Potassium 3.5 mEq/L (3.5-5.1); Sodium 132 mEq/L (136-145); eGFR For African Americans > 60 (> 60); eGFR For Non-African Americans > 60 (> 60)
--- NOTE | 2017-05-11 08:30 | Neurology Progress Note ---
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 He is improving from a strength perspective and his balance is stable. He does however have a baseline dementia with superimposed sundowning. I feel that he might have some difficulty functioning independently. I agree with Plavix. The repeat CT of the head did not reveal any acute changes, the carotid Doppler study revealed nonstenotic plaque. Echocardiogram is pending. He may need assisted living least for short period of time. I will reevaluate him at your request. Subjective Interval history: The chart was reviewed, the patient was seen and examined. Upon my entering the room is in the bathroom on the commode. He is able to manage himself while in the bathroom and exited from the bathroom and walk to the bed without difficulty. He seems to be a bit confused, however not encephalopathic. Likely a combination of dementia and an sundowning. He asked repeatedly "where have I have been"? However he knows his name, he knows that he is in "[facility]" and follow simple commands. The carotid Doppler study revealed nonstenotic plaquing. And the repeat CT scan of the brain revealed the old lacunar infarcts at the head of the caudate bilaterally. The findings are identified. The echocardiogram is pending. Objective - Constitutional Vitals: Temp Pulse Resp BP Pulse Ox 98.1 F 86 15 135/79 92 05/11/17 08:06 05/11/17 08:06 05/11/17 08:06 05/11/17 08:06 05/11/17 08:06 - Neurological Exam Sensorimotor examination: Present: intact Motor Examination: Present: grossly full strength in all extremities Motor examination - left side: 5/5: deltoids, biceps, triceps, wrist flexion, wrist extension, hip flexors, manager salt, quadriceps, tibialis Anterior, toe extension (EHL), plantarflexion Sensation intact: Present: intact Mental Status Examination: Present: awake, alert, oriented to person, oriented to place, follows commands appropriately, answers questions appropriately, no agnosia, no aphasia, no aproxia Cranial nerve examination: Present: PERRL, EOMI, sensory to face intact, mastication intact, no facial asymmetry is present, no dysarthria, hearing is intact symmetrically Cerebellar examination: Present: performs finger to nose and heel to jacob symmetrically without ataxia Additional comments: Mental status assessment finds that he is, he is alert however he is slightly confused. He was asking repeatedly "where am I". I believe that this is likely due to a combination of dementia and sundowning. He is able to follow some simple commands without difficulty. Believe he would have some difficulty with independent living. Cranial nerves II through XII are grossly intact. Motor exam finds is normal strength of the deltoids symmetrically the right biceps is slightly weak. The right triceps is slightly weak. He seems to have symmetric strength of both legs today in all muscles. Gait is stable. Results - Laboratory Findings CBC and BMP: 05/11/17 04:10 05/11/17 04:10 Abnormal lab findings: Abnormal lab results ESR 35 mm/hr (0-10) H 05/08/17 13:35 Sodium 132 mEq/L (136-145) L 05/11/17 04:10 Glucose 126 mg/dL (70-105) H 05/11/17 04:10 Calculated Osmolality 275 (280-300) L 05/11/17 04:10 Creatine Kinase 22 Units/L (30-223) L 05/08/17 13:08 Folate > 44.6 ng/mL (3.0-16.0) H 05/10/17 10:27 Urine Clarity Cloudy (Clear) A 05/08/17 14:19 Consult Discharge Plan - Plan Referrals: Milton Garcia MD [Primary Care Provider] -
[2017-05-11] MEDS: Multivit/Ca/Min/Fe/FA 1 TAB TABLET PO SCH (08:57)
[2017-05-11] MEDS: Famotidine 20 MG TABLET PO SCH (08:57)
[2017-05-11] MEDS: amLODIPine 5 MG TABLET PO SCH (08:57)
[2017-05-11] MEDS: Lactulose Oral Soln 20 GM/30 ML UDC PO SCH (08:58)
[2017-05-11] MEDS: (Omega-3/Dha/Epa/Fish Oil [Fish Oil 1,000 Mg Softgel]) PO SCH (08:59)
--- NOTE | 2017-05-11 13:42 | Discharge Summary ---
Date of Encounter: 05/11/17 Time of Encounter: 14:50 - Discharge Diagnosis (1) Generalized weakness Priority: Primary Status: Acute Comments: Sudden onset 2 days ago, pt has returned to baseline. BLE and BUE strong and equal, numbness and tingling have resolved. Head CT negative x 2. MRIs have been cancelled due to possibilty of metal parts in implants in ears. PT had surgery in the 1970s and family is unsure if he had a repair to ears or implants placed. PT/OT have no recommendations for post discharge care. Neurology has recommended assisted living due to decreased level of functioning and baseline dementia. 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 (2) Hypokalemia Priority: Secondary Status: Acute Comments: Resolved. (3) Dementia Priority: Secondary Status: Chronic Comments: Patient has returned to his baseline. Continue to monitor for safety with fall precautions at home. Qualifiers: Dementia type: unspecified type Dementia behavioral disturbance: without behavioral disturbance Qualified Code(s): F03.90 - Unspecified dementia without behavioral disturbance (4) Hyponatremia Priority: Secondary Status: Acute Comments: Sodium remains 133 today. Improving. Medications then stop, may take time to rebound fully within normal limits. (5) Dysesthesia Priority: Secondary Status: Resolved Comments: Resolved. 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 The patient denies any numbness or tingling to any extremity and strength has returned to all extremities. (6) Hypertension Priority: Secondary Status: Chronic Comments: Blood pressure is well controlled. Continue home medications. May consider restarting diuretic after labs are stable and patient is no longer acutely ill. Follow-up with primary care. Qualifiers: Hypertension type: essential hypertension Qualified Code(s): I10 - Essential (primary) hypertension (7) Hyperlipidemia Priority: Secondary Status: Chronic Comments: Chronic. Continue medication. Qualifiers: Hyperlipidemia type: unspecified Qualified Code(s): E78.5 - Hyperlipidemia , unspecified (8) DVT prophylaxis Priority: Secondary Status: Acute Comments: Heparin subcutaneous daily. - Discharge Medications Prescriptions: Clopidogrel [Plavix] 75 mg PO DAILY #30 tablet Home Medications: Lidocaine HCl [Lidocaine HCl Viscous] 15 ml MM TID PRN 05/08/17 [History] Mv-Mn/FA/Vit K/Lycop/Lut/Coq10 [Daily Multivitamin Capsule] 1 tab PO DAILY 05/08 [History] [place]-3/Dha/Epa/Fish Oil [Fish Oil 1,000 mg Softgel] 1 tab PO DAILY 05/08/17 [ History] Ranitidine HCl [Zantac] 150 mg PO BID 05/08/17 [History] Simvastatin [Zocor] 40 mg PO DAILY 05/08/17 [History] Triamterene/Hydrochlorothiazid [Dyazide 37.5-25 Capsule] 1 tab PO DAILY [History] Clopidogrel [Plavix] 75 mg PO DAILY #30 tablet 05/11/17 [Rx] Allergies/Adverse Reactions: 3 Allergy/AdvReac Type Severity Reaction Status Date / Time No Known Allergies Allergy Verified 05/08/17 15:00 Procedures/tests Complete & Pending: Procedures Performed prior 72 hours Category Date Time Status CT head/brain wo con [CT] Routine Cat Scan 05/10/17 17:30 Completed EV carotid duplex imaging BI Routine Y 05/10/17 16:04 Completed EV echo with saline Routine Y 05/11/17 16:04 Completed Date of admission: 05/09/17 14:22 Primary care physician: Milton Garcia Consults: 05/10/17 08:23 Consult to Neurology [CONS] Routine Consulting Provider: Neurology [facility] Reason for Consult: acute weakness, numbness/tingling to extremities, L > R. CT head negative, unable to ascertain if he can have MRI due to prior implant/ repair (?) to mary ears in the 70s. He does appear to be improving. Time Notified: 08:24 Call Completed: Yes Discharging clinician: Salima Silva Anticipated date of discharge: 05/11/17 - Patient Status Disposition: Home, Self-Care Condition: Good Functional capacity at discharge: uses cane/walker Overall status at discharge: patient is progressing back to baseline - Discharge Instructions Follow Up With: Milton Garcia MD [Primary Care Provider] - Additional Instructions: Please follow up with your primary care provider in the next 7-10 days for recheck. Take new medication as directed. Return to emergency department as needed for any other problems or concerns, or if symptoms return or worsen. Resume normal activities and diet as tolerated. Resume home medications, do not take aspirin anymore. - Diet and Activity Activity: increase activity as tolerated Diet: advance to your usual diet Hospital course: Mr. Lopez is a 86 year old male with past medical history of CVA, hypertension, hyperlipidemia, dementia. Presented to the emergency department with numbness and tingling, weakness. He was found to possibly extend a prior CVA. He is returned to baseline, numbness and tingling has resolved. Weakness has resolved, patient is back at his baseline. Head CT 2 is negative. Patient was unable to have MRI due to questionable implants in his ears from the . Patient is stable, labs and vitals are stable and within normal limits. Patient is appropriate for discharge. He will be sent home with a prescription for Plavix 75 mg by mouth daily, he is already on a statin. He will continue that after discharge. PT and OT identified no needs for the patient after discharge. Neurology recommended patient go to assisted living due to his probable difficulty functioning independently at home. I spoke with his son, Tobin by Phone. He states that he and his brother live close to the patient and check on him multiple times a day. They say that frequently for shopping and to eat, and they do not feel that this is the time to have him in assisted living or a [facility]. - Time Spent with Patient Total time spent providing and/or coordinating discharge services: Less than 30 minutes - Constitutional Vitals: Temp Pulse Resp BP Pulse Ox 98.4 F 84 14 135/82 95 05/11/17 11:00 05/11/17 11:00 05/11/17 11:00 05/11/17 11:00 05/11/17 11:00 General appearance: Present: cooperative, A&O X 1, A&O X 3, pleasant, no acute distress, answers questions appropriately - Head Head exam: Present: atraumatic, normal inspection, normocephalic - Eye Eye exam: Present: normal appearance, conjuntiva pink, sclera anicteric - Neck Neck exam general surgery: Present: normal inspection, supple, trachea midline. Absent: lymphadenopathy, tenderness - Respiratory Respiratory exam: Present: chest wall tenderness, CTAB. Absent: accessory muscle use, rales, rhonchi, wheezes - Cardiovascular Cardiovascular exam: Present: RRR, +S1, +S2. Absent: diastolic murmur, gallop, rubs, systolic murmur - GI/Abdominal GI/Abdominal exam: Present: normal bowel sounds, soft, no peritoneal signs. Absent: distended, tenderness - Extremities Exam Extremities exam: Present: normal capillary refill, normal inspection, warm, radial pulses palpable and symmetrical. Absent: calf tenderness, cyanotic, pedal edema, tenderness - Neurological Exam Neurological exam: Present: alert, altered, oriented X3, no focal deficits, strengths equal and symetr throughout. Absent: pronater drift, facial droop, speech deficit - Skin Skin exam: Present: dry, intact, normal color, warm. Absent: rash
[2017-05-11 14:40] VITALS: BP 132/67
== END 2017-05-11 18:32 | disposition home or self-care (01) | DRG 57 ==
LOC: EMEROO 11:36 → 3BNU 11:36
PROVIDERS: ADMIT Internal Medicine; ATTEND Registered Nurse

== ENCOUNTER 2017-05-18 06:32 | Observation (INO) ==
[2017-05-18] MEDS ORDERED: Nystatin SUSP 5 ML UD.LIQ PO ONE (06:53)
[2017-05-18] MEDS: GI Cocktail 40 ML EACH PO ONE ×2 (07:01→07:04)
--- NOTE | 2017-05-18 07:03 | Emergency Department Note ---
Disposition Clinical Impression: Candidal esophagitis Dysphagia Qualifiers: Dysphagia type: unspecified Qualified Code(s): R13.10 - Dysphagia, unspecified Disposition: Admitted As Inpatient Condition: Good Neck Injury/Pain HPI - General Chief Complaint: ED General Medical Stated Complaint: Can't Swallow Time Seen by Provider: 05/18/17 06:42 Source: patient, family Mode of arrival: private vehicle Limitations: no limitations Nursing Notes Reviewed: Yes Vital Signs Reviewed: Yes - History of Present Illness HPI Narrative: 86-year-old male history of hypertension, dementia, prior complaints of neck pain, difficulty swallowing with recent EGD who presents to the ER with a chief complaint of difficulty swallowing. Patient is accompanied by his son. He reports that several weeks ago he had a similar complaint. He had not eaten for 2 days. He was noted to be hyponatremic and hypokalemic. He was having difficulty walking and was admitted at that time. He had an EGD which showed some mild gastritis. He went home and symptoms improved. He reports since yesterday he has had difficulty eating again. He did eat breakfast but that was about it. No history of esophagitis or Pickard's esophagus. No history of surgical intervention on his esophagus or neck. Does report some mandibular pain which is chronic for him. He does take viscous lidocaine at home but reports he cannot swallow that either. No chest pain, shortness of breath, nausea vomiting or abdominal pain. He denies any choking or aspiration events. Pt Subjective Complaint: neck pain Onset (ago): day(s) Place: home Pain Severity: moderate Duration: intermittent Improves with: none Worsens with: none Associated symptoms: Reports: difficulty swallowing Treatments prior to arrival: none - Related Data Home Medications Medication Instructions Recorded Confirmed Lidocaine HCl [Lidocaine HCl 15 ml MM TID PRN 05/08/17 05/18/17 Viscous] Mv-Mn/FA/Vit K/Lycop/Lut/Coq10 1 tab PO DAILY 05/08/17 05/18/17 [Daily Multivitamin Capsule] [place]-3/Dha/Epa/Fish Oil [Fish Oil 1 tab PO DAILY 05/08/17 05/18/17 1,000 mg Softgel] Ranitidine HCl [Zantac] 150 mg PO DAILY 05/08/17 05/18/17 Simvastatin [Zocor] 40 mg PO BID 05/08/17 05/18/17 Triamterene/Hydrochlorothiazid 1 tab PO DAILY 05/08/17 05/18/17 [Dyazide 37.5-25 Capsule] Previous Rx's Medication Instructions Recorded Clopidogrel [Plavix] 75 mg PO DAILY #30 tablet 05/11/17 Allergies Allergy/AdvReac Type Severity Reaction Status Date / Time No Known Allergies Allergy Verified 05/18/17 06:33 All systems ED: reviewed and negative except as stated. ENT ED: Reports: throat pain, dysphagia Cardiovascular: Denies: chest pain Respiratory: Denies: dyspnea Gastrointestinal: Denies: abdominal pain, nausea, vomiting Musculoskeletal: Reports: neck pain Past Medical History - Past Medical History Attestation: Yes The following information was validated with the patient. Source: patient, obtained from family Medical history: Reports: cancer, dementia, GERD, hyperlipidemia, hypertension, myocardial infarction Surgical history: Reports: other Psychiatric history: Reports: no psych history - Social History Smoking Status: Never smoker Alcohol use: Reports: none Drug use: Reports: none Physical Exam - General Limitations: no limitations General appearance: alert, in no apparent distress - Head Head exam: atraumatic, normocephalic - Eye Eye exam: Present: normal appearance - ENT ENT exam: normal exam, other (Oral candidiasis) - Neck Neck exam: Present: normal inspection, full ROM, tenderness (Patient has diffuse tenderness over the anterior aspect of his neck.) - Chest Chest inspection: Present: normal inspection, symmetric chest wall rise - Respiratory Respiratory exam: Present: normal lung sounds bilaterally - Cardiovascular Cardiovascular exam: Present: regular rate, normal rhythm, normal heart sounds - Abdominal Exam Abdominal exam: Present: soft, Non-Tender. Absent: tenderness, distention, rigidity - Extremities Exam Extremities exam: Present: normal inspection, full ROM - Expanded Upper Extremity Exam Shoulder exam: Present: normal inspection, full ROM Arm exam: Present: normal inspection, full ROM Elbow exam: Present: normal inspection, full ROM Forearm/Wrist exam: Present: normal inspection, full ROM Hand exam: Present: normal inspection, full ROM - Expanded Lower Extremity Exam Hip/Pelvis exam: Present: normal inspection, full ROM Upper leg exam: Present: normal inspection, full ROM Knee exam: Present: normal inspection, full ROM Lower leg exam: Present: normal inspection, full ROM Ankle exam: Present: normal inspection, full ROM Foot/toe exam: Present: normal inspection, full ROM - Neurological Exam Neurological exam: Present: alert, other (GCS 15. Nonfocal neurologic exam. Moves all extremities equally.) - Skin Skin exam: Present: warm, dry Course Course Narrative: Patient seen and examined. He has oral candidiasis on exam. He is tolerating secretions and is not spitting up any in the room. We will check an EKG for neck pain as well as metabolic panel. We will also give him a GI cocktail and nystatin swish and swallow. I will review his prior EGD. Family states he was scheduled to have a barium swallow in the near future. - Reevaluation(s) Reevaluation #1: Discussed results of labs with the patient. We attempted to give him a GI cocktail here as well as oral nystatin but he is unable to tolerate anything by mouth. He has no difficulty handling secretions at this time. We will admit to the hospitalist service for suspected candidal esophagitis for IV hydration and gastroenterology consultation. Vital Signs Temperature 98.0 F 05/18/17 06:34 Pulse Rate 82 05/18/17 06:34 Respiratory Rate 18 05/18/17 06:34 Blood Pressure 101/61 05/18/17 06:34 O2 Sat by Pulse Oximetry 97 05/18/17 06:34 Temperature 98.0 F 05/18/17 06:34 Pulse Rate 69 05/18/17 07:41 Respiratory Rate 18 05/18/17 07:41 Blood Pressure 113/71 05/18/17 07:41 O2 Sat by Pulse Oximetry 97 05/18/17 07:41 Oxygen Delivery Oxygen Delivery Room Air Neck Pain - MDM Narrative Medical decision making narrative: 86-year-old male presents to the ER due to difficulty swallowing. He has a prior history of this with evaluation recently with EGD. EGD was noted to have mild gastritis without any other findings. Family reports he started having difficulty swallowing again yesterday. No choking episodes. No abdominal pain nausea or vomiting. He was unable to tolerate oral intake here. He is noted to have oral thrush with suspected esophagitis. Basic labs checked. IV fluids and IV Diflucan administered. He is not immunocompromised as per family. He will be admitted to the hospitalist service for dysphagia, esophagitis - Lab Data Lab results reviewed: Yes I reviewed the patient's lab results. Result diagrams: 05/18/17 07:28 02/07/18 07:28 Lab Results 05/18/17 05/18/17 05/18/17 Range/Units 07:28 07:28 07:28 WBC 5.8 (4.3-11.1) K/mcL RBC 4.92 (4.19-5.50) M/mcL Hgb 14.4 (12.9-16.9) g/dL Hct 43.3 (37.5-50.1) % MCV 88.0 (83.0-100.0) fL MCH 29.3 (28.0-33.3) pg MCHC 33.3 (31.6-35.5) g/dL RDW 13.6 (11.5-14.5) % Plt Count 417 H (140-400) K/mcL MPV 8.4 L (9.4-12.4) fL Immature Gran % 0.3 (0-4) % Seg Neutrophils % 69.7 % Lymphocytes % 15.6 % Monocytes % 12.2 % Eosinophils % 1.5 % Basophils % 0.7 % Neutrophils # 4.1 (1.6-8.9) K/mcL Lymphocytes # 0.9 (0.6-4.6) K/mcL Monocytes # 0.7 (0.0-1.3) K/mcL Eosinophils # 0.1 (0.0-0.6) K/mcL Basophils # 0.0 (0.0-0.2) K/mcL Sodium 132 L (136-145) mEq/L Potassium 3.6 (3.5-5.1) mEq/L Chloride 96 L (98-107) mEq/L Carbon Dioxide 30 H (23-29) mEq/L BUN 12 (8-23) mg/dL Creatinine 0.95 (0.70-1.30) mg/dL Est GFR ( Amer) > 60 (> 60) Est GFR (Non-Af Amer) > 60 (> 60) BUN/Creatinine Ratio 13 (6-26) Glucose 114 H (70-105) mg/dL Calculated Osmolality 275 L (280-300) Calcium 9.4 (8.6-10.3) mg/dL Magnesium 1.8 (1.6-2.6) mg/dL TSH 2.281 (0.340-5.600) mcIU/mL - EKG Data EKG attestation: Yes I reviewed and interpreted this EKG. EKG results narrative: EKG demonstrates sinus rhythm with a rate of 74 bpm with first-degree AV block. Normal axis. Normal intervals. Normal R-wave progression. Nonspecific ST-T wave changes in lead 3. No gross ST elevations or depressions. No acute ischemic findings. Go - Go Situation: Demographics, MOA Background: Presenting Complaint, Relevant PMH, Meds, & Allergies Assessment: Course and respsone to treatment, Exam Concerns, Patient/Family Expectation, Pertinant Lab Results Recommendation: Barrier(s) to disposition, Recommendation based on pending studies, treatments, or consults Go Report Given to: Dr. Robb Stiles Repor Time: 08:16 Attestation Statement - Attestation Attestation: I examined this patient and my medical decision-making was reviewed with the Resident Physician. I agree with the documented findings, disposition and treatment plan as described except to the extent set forth below. Suspect esophageal candidiasis. Patient has significant dysphagia and cannot tolerate by mouth and has resultant vomiting. Plan to obtain barium swallow, admitted for treatment of esophageal candidiasis and GI consultation.
[2017-05-18] MEDS ORDERED: 0.9 % Sodium Chloride 1,000 ML IVC ONE (07:13)
[2017-05-18] MEDS ORDERED: Fluconazole 200 MG/100 ML 200 MG/100 ML BAG IVPB ONE (07:14)
[2017-05-18 07:49] LABS: Basophils % 0.7 %; Eosinophils # 0.1 K/mcL (0.0-0.6); Eosinophils % 1.5 %; Hematocrit 43.3 % (37.5-50.1); Hemoglobin 14.4 g/dL (12.9-16.9); Immature Granulocytes % 0.3 % (0-4); Lymphocytes # 0.9 K/mcL (0.6-4.6); Lymphocytes % 15.6 %; Mean Corpuscular HGB Conc 33.3 g/dL (31.6-35.5); Mean Corpuscular Hemoglobin 29.3 pg (28.0-33.3); Mean Platelet Volume 8.4 fL (9.4-12.4); Monocytes # 0.7 K/mcL (0.0-1.3); Monocytes % 12.2 %; Neutrophils # 4.1 K/mcL (1.6-8.9); Platelet Count 417 K/mcL (140-400); Red Blood Count 4.92 M/mcL (4.19-5.50); Red Cell Distribution Width 13.6 % (11.5-14.5); Segmented Neutrophils % 69.7 %
[2017-05-18 07:57] LABS: BUN/Creatinine Ratio 13 (6-26); Blood Urea Nitrogen 12 mg/dL (8-23); Calcium 9.4 mg/dL (8.6-10.3); Carbon Dioxide 30 mEq/L (23-29); Chloride 96 mEq/L (98-107); Glucose 114 mg/dL (70-105); Magnesium 1.8 mg/dL (1.6-2.6); Osmolality,Calculated 275 (280-300); Potassium 3.6 mEq/L (3.5-5.1); Sodium 132 mEq/L (136-145); eGFR For African Americans > 60 (> 60); eGFR For Non-African Americans > 60 (> 60)
--- NOTE | 2017-05-18 08:36 | Internal Med History&Physical ---
Date of Encounter: 05/18/17 Time of Encounter: 08:30 Assessment and Plan (1) Candidal esophagitis Current visit: Yes Status: Acute Diagnosis of Frieda esophagitis needs definite diagnosis Krypton appear to be coated but does not appear to be thrush Treated empirically until GI sees the patient and probably sent for studies (2) Dysphagia Current visit: Yes Status: Acute Dysphagia and odynophagia discussed with Dr. Neri will keep him nothing by mouth for for the study today Qualifiers: Dysphagia type: oropharyngeal phase Qualified Code(s): R13.12 - Dysphagia, oropharyngeal phase (3) Generalized weakness Current visit: No Status: Acute Due to dehydration and poor by mouth intake (4) Dementia Current visit: No Status: Chronic Chronic resume home medication Qualifiers: Dementia type: unspecified type Dementia behavioral disturbance: without behavioral disturbance Qualified Code(s): F03.90 - Unspecified dementia without behavioral disturbance (5) Hyperlipidemia Current visit: No Status: Chronic Chronic continue home medication Qualifiers: Hyperlipidemia type: pure hypercholesterolemia Qualified Code(s): E78.00 - Pure hypercholesterolemia, unspecified; E78.0 - Pure hypercholesterolemia (6) Hypertension Current visit: No Status: Chronic Chronic and well controlled Qualifiers: Hypertension type: essential hypertension Qualified Code(s): I10 - Essential (primary) hypertension Internal Medicine - H&P: HPI Chief complaint: dysphagia Admitted From: Emergency Dept Plans for Post Hospital Care: Home History of present illness: Mr. Lopez is a 86 year old male Patient with history of dementia, high cholesterol, hypertension, CAD, prostate cancer and GERD patient was admitted in April due to dysphagia had EGD done April 28 which showed mild gastritis patient was admitted , treated and then discharged patient apparently was doing well until yesterday developed dysphagia again and odynophagia or painful and difficulty swallowing and he says food will not go down both liquid and solid intake and this morning to bring him to the emergency room. No fever or chills ER evaluation was concern for Frieda esophagitis was given nystatin swish and swallow admitted for further evaluation. On my exam the tongue is coated with white coating that does not appear to be trush patient will be admitted this time we will consult GI for further evaluation Past Med Surg Social Fam HX - Past Medical History Medical history: cancer, dementia, GERD, hyperlipidemia, hypertension, myocardial infarction Psychiatric history: no psych history - Past Surgical History Surgical History: other - Social History Smoking Status: Never smoker Alcohol use: none Drug use: none Internal Medicine - H&P: Meds Lidocaine HCl [Lidocaine HCl Viscous] 15 ml MM TID PRN 05/08/17 [History] Mv-Mn/FA/Vit K/Lycop/Lut/Coq10 [Daily Multivitamin Capsule] 1 tab PO DAILY 05/08 [History] [place]-3/Dha/Epa/Fish Oil [Fish Oil 1,000 mg Softgel] 1 tab PO DAILY 05/08/17 [ History] Ranitidine HCl [Zantac] 150 mg PO DAILY 05/08/17 [History] Simvastatin [Zocor] 40 mg PO BID 05/08/17 [History] Triamterene/Hydrochlorothiazid [Dyazide 37.5-25 Capsule] 1 tab PO DAILY [History] Clopidogrel [Plavix] 75 mg PO DAILY #30 tablet 05/11/17 [Rx] 3 Allergy/AdvReac Type Severity Reaction Status Date / Time No Known Allergies Allergy Verified 05/18/17 06:33 All Systems PM: A 10-system review of systems was performed and is negative for pertinent findings except as documented above in the HPI. - Constitutional Constitutional: fatigue - EENT Eyes: no change in vision, no discharge, no pain, no photophobia Ears: no ear discharge, no ear pain, no tinnitus Nose, mouth and throat: no dysphagia, no nasal discharge, no neck pain, no sore throat - Cardiovascular Cardiovascular ROS IM: no chest pain, no diaphoresis, no dyspnea, no lightheadedness, no palpitations, no syncope - Respiratory Respiratory: no cough, no dyspnea, no wheezing, no excessive phlegm production - Gastrointestinal Gastrointestinal: dysphagia, odynophagia - Musculoskeletal Musculoskeletal ROS IM: no numbness, no tingling - Integumentary Integumentary IM: no rash, no unusual bruising - Neurological Neurological ROS: no confusion, no convulsions, no focal weakness, no numbness, no tingling, no tremor(s) - Constitutional Vitals: Temp Pulse Resp BP Pulse Ox 98.0 F 69 18 113/71 97 05/18/17 06:34 05/18/17 07:41 05/18/17 07:41 05/18/17 07:41 02/07/18 07:41 - Head Head exam: Present: atraumatic, normocephalic - Eye Eye exam: Present: PERRL, conjuntiva pink, sclera anicteric Pupils: Present: PERRL - Neck Neck exam general surgery: Present: supple, trachea midline. Absent: lymphadenopathy - Respiratory Respiratory exam: Present: CTAB. Absent: accessory muscle use, rales, rhonchi, wheezes - Cardiovascular Cardiovascular exam: Present: RRR, +S1, +S2. Absent: diastolic murmur, gallop, rubs, systolic murmur - GI/Abdominal GI/Abdominal exam: Present: normal bowel sounds, soft, no peritoneal signs. Absent: distended, tenderness - Extremities Exam Extremities exam: Present: warm, radial pulses palpable and symmetrical. Absent : calf tenderness, cyanotic, pedal edema - Neurological Exam Neurological exam: Present: CN II-XII intact, oriented X3, no focal deficits. Absent: pronater drift, facial droop, speech deficit - Skin Skin exam: Present: dry, intact Internal Med - H&P Results - Labs CBC & Chem 7: 05/18/17 07:28 05/18/17 07:28
[2017-05-18] MEDS ORDERED: Naloxone 0.4 MG/ML INJ IVP PRN (08:43)
[2017-05-18] MEDS: 0.9 % Sodium Chloride 1,000 ML IVC SCH ×2 (09:59→19:23)
[2017-05-18] MEDS: Famotidine 20 MG TABLET PO SCH (10:03)
[2017-05-18] MEDS: Multivit/Ca/Min/Fe/FA 1 TAB TABLET PO SCH (10:03)
[2017-05-18] MEDS: (Omega-3/Dha/Epa/Fish Oil [Fish Oil 1,000 Mg Softgel] PO SCH (10:03)
--- NOTE | 2017-05-18 11:48 | Gastroenterology Consult Note ---
<DuncanTyrel deluca Reyes - Last Filed: 05/18/17 11:42> Date of Encounter: 05/18/17 Time of Encounter: 10:35 - Assessment and plan (1) Dysphagia Current Visit: Yes Status: Acute Assessment and plan: EGD completed 04/28/2017 with small hiatal hernia and gastritis. Will repeat EGD with possible dilation r/o structural causes such as stricture, tumor, etc vs esophageal motility disorder. IF EGD negative, plan for esophageal manometry as outpatient. Qualifiers: Dysphagia type: oropharyngeal phase Qualified Code(s): R13.12 - Dysphagia, oropharyngeal phase (2) Dementia Current Visit: No Status: Chronic Qualifiers: Dementia type: unspecified type Dementia behavioral disturbance: without behavioral disturbance Qualified Code(s): F03.90 - Unspecified dementia without behavioral disturbance - Time Spent With Patient Total time spent is greater than 50% in coordination of care (as documented) at patient's floor/unit and/or counseling patient: GI History of Present Illness - Data of Consult Patient: new to practice Consult date: 05/18/17 Requesting Physician: Antione Brewer MD - Consult Narrative Reason for consult: Dysphagia History of present illness: Mr. Lpoez is a 86 year old male with PMHx of dementia, HTN, HLD, CAD, GERD, prostate cancer, HI who presented to the ED with painful/difficulty swallowing. He is having difficulty swallowing both solids and liquids. He had an EGD completed in April by Dr. Harris that showed a small hiatal hernia and gastritis. He denies fever or chills. ED evaluation was concerning for Frieda esophagitis and was given Nystatin swish and swallow. Procedures: EGD 04/28/2017 Dr. Harris: Small hiatal hernia, gastritis Colonoscopy 12/22/2012 Dr. Thompson: Internal hemorrhoids, stool in entire colon. NSAIDs: None Anticoagulation: Plavix Past Med Surg Social Fam HX - Past Medical History Medical history: cancer, dementia, GERD, hyperlipidemia, hypertension, myocardial infarction Psychiatric history: no psych history - Past Surgical History Surgical History: other - Social History Smoking Status: Never smoker Alcohol use: none Drug use: none - Gastrointestinal Gastrointestinal: Present: as per HPI - Constitutional Constitutional: as per HPI - EENT Eyes: as per HPI Ears: Present: as per HPI Nose, mouth and throat: Present: as per HPI - Cardiovascular Cardiovascular ROS: Present: as per HPI - Respiratory Respiratory IM: Present: as per HPI - Genitourinary Genitourinary: Absent: change in color, Urinary frequency - Neurological ROS Neurological GI: Present: as per HPI - Hematologic/Lymphatic Hematologic/Lymphatic pediatric: Present: as per HPI - Musculoskeletal Musculoskeletal ROS GI: Present: as per HPI - Integumentary Integumentary GI: Present: as per HPI - Psychiatric ROS Psychiatric GI: Present: as per HPI - Endocrine Endocrine IM: Present: as per HPI - Constitutional Vitals: Temp Pulse Resp BP Pulse Ox 97.3 F L 67 16 135/77 98 05/18/17 08:57 05/18/17 08:57 05/18/17 08:57 05/18/17 08:57 05/18/17 08:57 General appearance: Present: cooperative, A&O X 2, no acute distress, answers questions appropriately - Head Head exam: Present: atraumatic, normocephalic - Eye Eye exam: Present: normal appearance, sclera anicteric - ENT ENT exam: Present: mucous membranes dry - Neck Neck exam general surgery: Present: normal inspection, trachea midline - Respiratory Respiratory exam: Present: CTAB. Absent: rales, rhonchi - Cardiovascular Cardiovascular exam: Present: RRR, +S1, +S2 - GI/Abdominal GI/Abdominal exam: Present: soft, no peritoneal signs. Absent: distended, firm , guarding, tenderness - Rectal Rectal exam: Present: deferred - Extremities Exam Extremities exam: Present: warm - Neurological Exam Neurological exam: Present: no focal deficits - Psychiatric Psychiatric exam: Present: normal affect, normal mood - Skin Skin exam: Present: dry, intact, normal color, warm Results - Labs CBC & Chem 7: 05/18/17 07:28 05/18/17 07:28 Labs: Last Result Calcium 9.4 mg/dL (8.6-10.3) 05/18/17 07:28 Entire Visit Hgb 14.4 g/dL (12.9-16.9) 05/18/17 07:28 Hct 43.3 % (37.5-50.1) 05/18/17 07:28 Consult Discharge Plan - Plan Referrals: Milton Garcia MD [Primary Care Provider] - <Gul,Pushpa - Last Filed: 05/18/17 19:17> Date of Encounter: 05/18/17 Time of Encounter: 13:00 - Time Spent With Patient Total time spent is greater than 50% in coordination of care (as documented) at patient's floor/unit and/or counseling patient: GI History of Present Illness - Data of Consult Requesting Physician: Antione Brewer MD - Consult Narrative History of present illness: Mr. Lopez is a 86 year old male - Constitutional Vitals: Temp Pulse Resp BP Pulse Ox 97.8 F 70 16 135/79 96 05/18/17 14:50 05/18/17 14:50 05/18/17 14:50 05/18/17 14:50 05/18/17 14:50 Results - Labs CBC & Chem 7: 05/18/17 07:28 05/18/17 07:28 Labs: Last Result Calcium 9.4 mg/dL (8.6-10.3) 05/18/17 07:28 Entire Visit Hgb 14.4 g/dL (12.9-16.9) 05/18/17 07:28 Hct 43.3 % (37.5-50.1) 05/18/17 07:28 - Attending Attestation I examined this patient and my medical decision-making was reviewed with the HOT DOG VENDOR. I agree with the documented findings, disposition and treatment plan as described except to the extent set forth below. Pt with dysphagia, oropharyngeal vs esophageal. Pt with some dementia. Rec: EGD with dilation and if no improvement then will need further w/u
[2017-05-18] MEDS ORDERED: *HR* Propofol 200 MG/20 ML VIAL IVP ONE (13:05)
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
[2017-05-18] MEDS ORDERED: Lidocaine -MPF 2% 2 ML VIAL ONE (13:28)
--- NOTE | 2017-05-18 16:44 | Electrocardiograph Report ---
[place] [id number] Test Date: 2017-05-18 Pat Name: Trevor Lopez Department: [id number] Room: 3A43 Gender: M Psychiatric Nursing Assistant: : [id number] Requested By: Mark Galvez Order Number: [id number] Reading MD: Joaquín Kwan DO Measurements Intervals [place] Rate: 74 P: 23 ID: [id number] QRS: 24 QRSD: 91 T: 56 QT: 351 QTc: 378 Interpretive Statements SINUS RHYTHM WITH FIRST DEGREE AV BLOCK NONSPECIFIC T-WAVE ABNORMALITY Electronically Signed On 05-18-2017 16:42:35 EST by Joaquín Kwan DO
--- NOTE | 2017-05-18 17:26 | ENT - Consult Note ---
Date of Encounter: 05/18/17 Time of Encounter: 17:23 Assessment and Plan (1) Dysphagia Current Visit: Yes Status: Acute My gross impression is that the swallowing difficulty is neurologic possibly related to dementia. As such I recommend a swallowing evaluation with a 3 phase video swallow if available at this facility. I will return sometime tomorrow to do a bedside laryngoscopy although a large obstructing lesion at the esophageal inlet would have likely been seen during the EGD. I also reviewed recent imaging studies and don't see any imaging into the mandible area. With his mandibular bone as thin as it is he could have a stress fracture. I therefore recommend plane films of the mandible to r/o a fracture. Qualifiers: Dysphagia type: oropharyngeal phase Qualified Code(s): R13.12 - Dysphagia, oropharyngeal phase History of Present Illness Consult date: 05/18/17 Reason for ENT Consult: other (dysphagia) History of present illness: 86 yo gentleman surrounded by 3 family members who provided the majority of the history. Apparently he has been complaining of inability to swallow even liquids. He says it just "doesn't go down". He is also having pain around the anterior mandible, maxilla and TMJ area. He has had two EGDs lately and also had esophageal dilatation today. Per the family he has not lost weight. He denies voice change. Past Med Surg Social Fam HX - Past Medical History Medical history: cancer, dementia, GERD, hyperlipidemia, hypertension, myocardial infarction Psychiatric history: no psych history - Past Surgical History Surgical History: other - Social History Smoking Status: Never smoker Alcohol use: none Drug use: none Medications and Allergies Lidocaine HCl [Lidocaine HCl Viscous] 15 ml MM TID PRN 05/08/17 [History] Mv-Mn/FA/Vit K/Lycop/Lut/Coq10 [Daily Multivitamin Capsule] 1 tab PO DAILY 05/08 [History] [place]-3/Dha/Epa/Fish Oil [Fish Oil 1,000 mg Softgel] 1 tab PO DAILY 05/08/17 [ History] Ranitidine HCl [Zantac] 150 mg PO DAILY 05/08/17 [History] Simvastatin [Zocor] 40 mg PO BID 05/08/17 [History] Triamterene/Hydrochlorothiazid [Dyazide 37.5-25 Capsule] 1 tab PO DAILY [History] Clopidogrel [Plavix] 75 mg PO DAILY #30 tablet 05/11/17 [Rx] 3 Allergy/AdvReac Type Severity Reaction Status Date / Time No Known Allergies Allergy Verified 05/18/17 06:33 ENT Exam Initial Vital Signs Temp Pulse Resp BP Pulse Ox 98.0 F 82 18 101/61 97 05/18/17 06:34 05/18/17 06:34 05/18/17 06:34 05/18/17 06:34 05/18/17 06:34 - General physical appearance well developed, well nourished (I watched the patient swallow water and he seems to get it to the back of the tongue, gurgles sl and spits it out immediately.) - ENT Other (oral cavity mucosa is normal and moist without erythema exudate or masses. He has significant bone loss of the mandible secondary to being edentulous. He is generally tender everywhere touched.) - Neck no masses, trachea midline, other (supple soft, but tender everywhere touched.) Exam Initial Vital Signs Temp Pulse Resp BP Pulse Ox 98.0 F 82 18 101/61 97 05/18/17 06:34 05/18/17 06:34 05/18/17 06:34 05/18/17 06:34 05/18/17 06:34 Results - Labs 05/18/17 07:28 05/18/17 07:28 Abnormal lab results Plt Count 417 K/mcL (140-400) H 05/18/17 07:28 MPV 8.4 fL (9.4-12.4) L 05/18/17 07:28 Sodium 132 mEq/L (136-145) L 05/18/17 07:28 Chloride 96 mEq/L (98-107) L 05/18/17 07:28 Carbon Dioxide 30 mEq/L (23-29) H 05/18/17 07:28 Glucose 114 mg/dL (70-105) H 05/18/17 07:28 Calculated Osmolality 275 (280-300) L 05/18/17 07:28 All other labs normal. Consult Discharge Plan - Plan Referrals: Milton Garcia MD [Primary Care Provider] -
[2017-05-18] MEDS: Ketorolac 30 MG/ML VIAL IVP SCH ×2 (17:55→23:13)
[2017-05-19] MEDS: Ketorolac 30 MG/ML VIAL IVP SCH ×2 (05:29→13:15)
[2017-05-19 05:44] LABS: Alanine Aminotransferase 10 Units/L (7-52); Albumin 3.2 g/dL (3.5-5.7); Albumin/Globulin Ratio 1.5 (1.1-2.2); Alkaline Phosphatase 40 Units/L (34-104); Aspartate Amino Transferase 14 Units/L (13-39); BUN/Creatinine Ratio 13 (6-26); Bilirubin,Total 0.6 mg/dL (0.3-1.0); Blood Urea Nitrogen 12 mg/dL (8-23); Calcium 8.2 mg/dL (8.6-10.3); Carbon Dioxide 24 mEq/L (23-29); Chloride 103 mEq/L (98-107); Globulin 2.1 g/dL (2.4-3.5); Glucose 93 mg/dL (70-105); Magnesium 1.6 mg/dL (1.6-2.6); Osmolality,Calculated 277 (280-300); Potassium 3.7 mEq/L (3.5-5.1); Sodium 134 mEq/L (136-145); Total Protein 5.3 g/dL (6.4-8.9); eGFR For African Americans > 60 (> 60); eGFR For Non-African Americans > 60 (> 60)
--- NOTE | 2017-05-19 12:52 | ENT - Consult Note ---
Date of Encounter: 05/19/17 Time of Encounter: 12:49 Assessment and Plan (1) Dysphagia Current Visit: Yes Status: Acute Qualifiers: Dysphagia type: oropharyngeal phase Qualified Code(s): R13.12 - Dysphagia, oropharyngeal phase (2) Dysphagia Current Visit: Yes Status: Acute See procedure note for bedside laryngoscopy. I have not found any evidence of upper airway obstruction or an otolaryngology associated abnormality to explain the dysphagia. I recommend following the swallowing therapists guidelines and exercises. Qualifiers: Dysphagia type: oropharyngeal phase Qualified Code(s): R13.12 - Dysphagia, oropharyngeal phase History of Present Illness Consult date: 05/19/17 History of present illness: F/U for dysphagia and generalized pain around the head and neck. The mandible xrays were negative for fracture and I reviewed the 3 phase video swallow demonstating improved swallowing with honeyed liquid. Past Med Surg Social Fam HX - Past Medical History Medical history: cancer, dementia, GERD, hyperlipidemia, hypertension, myocardial infarction Psychiatric history: no psych history - Past Surgical History Surgical History: other - Social History Smoking Status: Never smoker Alcohol use: none Drug use: none Medications and Allergies Lidocaine HCl [Lidocaine HCl Viscous] 15 ml MM TID PRN 05/08/17 [History] Mv-Mn/FA/Vit K/Lycop/Lut/Coq10 [Daily Multivitamin Capsule] 1 tab PO DAILY 05/08 [History] [place]-3/Dha/Epa/Fish Oil [Fish Oil 1,000 mg Softgel] 1 tab PO DAILY 05/08/17 [ History] Ranitidine HCl [Zantac] 150 mg PO DAILY 05/08/17 [History] Simvastatin [Zocor] 40 mg PO BID 05/08/17 [History] Triamterene/Hydrochlorothiazid [Dyazide 37.5-25 Capsule] 1 tab PO DAILY [History] Clopidogrel [Plavix] 75 mg PO DAILY #30 tablet 05/11/17 [Rx] 3 Allergy/AdvReac Type Severity Reaction Status Date / Time No Known Allergies Allergy Verified 05/18/17 06:33 ENT Exam Initial Vital Signs Temp Pulse Resp BP Pulse Ox 98.0 F 82 18 101/61 97 05/18/17 06:34 05/18/17 06:34 05/18/17 06:34 05/18/17 06:34 05/18/17 06:34 - General physical appearance well developed, well nourished, no distress Exam Initial Vital Signs Temp Pulse Resp BP Pulse Ox 98.0 F 82 18 101/61 97 05/18/17 06:34 05/18/17 06:34 05/18/17 06:34 05/18/17 06:34 05/18/17 06:34 Results - Labs 05/18/17 07:28 05/19/17 05:15 Abnormal lab results Plt Count 417 K/mcL (140-400) H 05/18/17 07:28 MPV 8.4 fL (9.4-12.4) L 05/18/17 07:28 Sodium 134 mEq/L (136-145) L 05/19/17 05:15 Calculated Osmolality 277 (280-300) L 05/19/17 05:15 Calcium 8.2 mg/dL (8.6-10.3) L 05/19/17 05:15 Serum Total Protein 5.3 g/dL (6.4-8.9) L 05/19/17 05:15 Albumin 3.2 g/dL (3.5-5.7) L 05/19/17 05:15 Globulin 2.1 g/dL (2.4-3.5) L 05/19/17 05:15 Diabetes panel 05/19/17 Range/Units 05:15 Sodium 134 L (136-145) mEq/L Potassium 3.7 (3.5-5.1) mEq/L Chloride 103 (98-107) mEq/L Carbon Dioxide 24 (23-29) mEq/L BUN 12 (8-23) mg/dL Creatinine 0.89 (0.70-1.30) mg/dL Glucose 93 (70-105) mg/dL Calcium 8.2 L (8.6-10.3) mg/dL AST 14 (13-39) Units/L ALT 10 (7-52) Units/L Alkaline Phosphatase 40 (34-104) Units/L Albumin 3.2 L (3.5-5.7) g/dL Calcium panel 05/19/17 Range/Units 05:15 Calcium 8.2 L (8.6-10.3) mg/dL Albumin 3.2 L (3.5-5.7) g/dL Pituitary panel 05/19/17 Range/Units 05:15 Sodium 134 L (136-145) mEq/L Potassium 3.7 (3.5-5.1) mEq/L Chloride 103 (98-107) mEq/L Carbon Dioxide 24 (23-29) mEq/L BUN 12 (8-23) mg/dL Creatinine 0.89 (0.70-1.30) mg/dL Glucose 93 (70-105) mg/dL Calcium 8.2 L (8.6-10.3) mg/dL Adrenal panel 05/19/17 Range/Units 05:15 Sodium 134 L (136-145) mEq/L Potassium 3.7 (3.5-5.1) mEq/L Chloride 103 (98-107) mEq/L Carbon Dioxide 24 (23-29) mEq/L BUN 12 (8-23) mg/dL Creatinine 0.89 (0.70-1.30) mg/dL Glucose 93 (70-105) mg/dL Calcium 8.2 L (8.6-10.3) mg/dL Total Bilirubin 0.6 (0.3-1.0) mg/dL AST 14 (13-39) Units/L ALT 10 (7-52) Units/L Alkaline Phosphatase 40 (34-104) Units/L Albumin 3.2 L (3.5-5.7) g/dL All other labs normal. Consult Discharge Plan - Plan Referrals: Milton Garcia MD [Primary Care Provider] - 06/02/17 10:00 am
--- NOTE | 2017-05-19 12:58 | ENT - Procedure Note ---
Date of procedure: 05/19/17 Pre-op diagnosis: dysphagia Post-op diagnosis: same Procedure: Flexible nasolaryngoscopy was done at the bedside after topical anesthesia of lidocaine/afrin in the right nares. The scope was easily advanced through the nasopharynx to hyopharynx. The pharyngeal mcdaniel, base of tongue, epiglottis, pyriform sinuses and vallecula were all within normal limits. The vocal cords and false vocal cords, arytenoids and subglottis did not demonstrate any abnormalities. The vocal cords moved normal. There was clear saliva sitting over the posterior larynx that the patient was insensate to. The exam was within normal limits. Anesthesia: topical (afrin/lido) Surgeon: Jennifer Krishnan Was there an rehab care assistant present: No Booth Manager: PCP NONE Estimated blood loss (cc): 0 Specimens collected: none Condition: stable
[2017-05-19] MEDS: Multivit/Ca/Min/Fe/FA 1 TAB TABLET PO SCH (13:16)
[2017-05-19] MEDS: Famotidine 20 MG TABLET PO SCH (13:16)
[2017-05-19] MEDS: (Omega-3/Dha/Epa/Fish Oil [Fish Oil 1,000 Mg Softgel] PO SCH (13:17)
--- NOTE | 2017-05-19 17:53 | Internal Med Progress Note ---
Date of Encounter: 05/19/17 Time of Encounter: 13:15 - Assessment and plan (1) Dysphagia Status: Acute Assessment and plan: Likely pharyngeal weakness and oral pain. Gastroenterology was consulted and patient underwent EGD which showed questionable stenosis of the esophagus inlet status post dilation, multiple gastric polyps and normal duodenum. ENT evaluation was completed including bedside laryngoscopy, with no acute abnormalities noted. X-ray mandible showed no acute abnormalities. Modified barium swallow study shows mild pharyngeal weakness with laryngeal penetration, mid to distal esophageal stasis, no marylou aspiration. Speech therapist has evaluated the patient, cleared for soft diet and thin liquids. Qualifiers: Dysphagia type: pharyngeal phase Qualified Code(s): R13.13 - Dysphagia, pharyngeal phase (2) Dementia Status: Chronic Assessment and plan: Supportive care and fall precautions. Qualifiers: Dementia type: Alzheimer's disease Alzheimer's disease onset: late-onset Dementia behavioral disturbance: without behavioral disturbance Qualified Code (s): G30.1 - Alzheimer's disease with late onset; F02.80 - Dementia in other diseases classified elsewhere without behavioral disturbance; F02.80 - Dementia in other diseases classified elsewhere without behavioral disturbance; F02.80 - Dementia in other diseases classified elsewhere without behavioral disturbance (3) Hyperlipidemia Status: Chronic Assessment and plan: Continue statin. Qualifiers: Hyperlipidemia type: unspecified Qualified Code(s): E78.5 - Hyperlipidemia , unspecified (4) Hypertension Status: Chronic Assessment and plan: Blood pressure well controlled. Continue home medications. Qualifiers: Hypertension type: essential hypertension Qualified Code(s): I10 - Essential (primary) hypertension (5) Prostate cancer Status: Inactive - Subjective Interval history: Patient reports feeling well, improving oral pain. History also obtained from patient's son at bedside. Patient is usually healthy and ADL independent, lives alone. 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 Denies any other complaints like nausea, vomiting, abdominal pain, chest pain or shortness of breath. - Constitutional Vitals: Temp Pulse Resp BP Pulse Ox 98.3 F 83 16 122/79 96 05/19/17 17:12 05/19/17 17:12 05/19/17 17:12 05/19/17 17:12 05/19/17 17:12 General appearance: Present: A&O X 3, answers questions appropriately - Respiratory Respiratory exam: Present: CTAB. Absent: accessory muscle use, rales, rhonchi, wheezes - Cardiovascular Cardiovascular exam: Present: RRR, +S1, +S2. Absent: diastolic murmur, gallop, rubs, systolic murmur - GI/Abdominal GI/Abdominal exam: Present: normal bowel sounds, soft, no peritoneal signs. Absent: distended, tenderness - Extremities Exam Extremities exam: Present: full ROM, warm, radial pulses palpable and symmetrical. Absent: calf tenderness, cyanotic, pedal edema Internal Medicine: Result - Labs CBC & Chem 7: 05/18/17 07:28 05/19/17 05:15 Labs: BMP 05/19/17 05:15 Sodium 134 L Potassium 3.7 Chloride 103 Carbon Dioxide 24 BUN 12 Creatinine 0.89 Glucose 93 Calcium 8.2 L Liver Function 05/19/17 Range/Units 05:15 Total Bilirubin 0.6 (0.3-1.0) mg/dL AST 14 (13-39) Units/L ALT 10 (7-52) Units/L Alkaline Phosphatase 40 (34-104) Units/L Albumin 3.2 L (3.5-5.7) g/dL - Impressions Impressions Mandible X-Ray 05/18/17 17:39 IMPRESSION: No acute osseous abnormalities identified. If symptoms persist, consider further evaluation with a CT face. D/ / Lopez Cho MD / Lopez Cho MD Interpreting Provider: Lopez Cho MD Videofluoroscopic Swallow 05/19/17 19:47 IMPRESSION: 1. Mild pharyngeal weakness with laryngeal penetration. No marylou aspiration. 2. Mid to distal esophageal stasis identified. This likely relates to the patient's symptomatology and follow-up evaluation with dedicated esophagram is recommended. Please see separate speech pathology report for full discussion of findings and recommendations. D/ / 05/19/2017 09:23:34 Renzo Rios MD / amanda Interpreting Provider: Renzo Rios MD Consult Discharge Plan - Plan Referrals: Milton Garcia MD [Primary Care Provider] - 06/02/17 10:00 am
[2017-05-20] MEDS: (Omega-3/Dha/Epa/Fish Oil [Fish Oil 1,000 Mg Softgel] PO SCH (07:33)
[2017-05-20] MEDS: Famotidine 20 MG TABLET PO SCH (07:33)
[2017-05-20] MEDS: Multivit/Ca/Min/Fe/FA 1 TAB TABLET PO SCH (07:34)
[2017-05-20 11:19] VITALS: BP 131/86
--- NOTE | 2017-05-20 13:40 | Discharge Summary ---
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 Dementia behavioral disturbance: without behavioral disturbance Qualified Code (s): G30.1 - Alzheimer's disease with late onset; F02.80 - Dementia in other diseases classified elsewhere without behavioral disturbance; F02.80 - Dementia in other diseases classified elsewhere without behavioral disturbance; F02.80 - Dementia in other diseases classified elsewhere without behavioral disturbance (4) Hyperlipidemia Priority: Secondary Status: Chronic Qualifiers: Hyperlipidemia type: unspecified Qualified Code(s): E78.5 - Hyperlipidemia , unspecified (5) Hypertension Priority: Secondary Status: Chronic Qualifiers: Hypertension type: essential hypertension Qualified Code(s): I10 - Essential (primary) hypertension - Discharge Medications Home Medications: Lidocaine HCl [Lidocaine HCl Viscous] 15 ml MM TID PRN 05/08/17 [History] Mv-Mn/FA/Vit K/Lycop/Lut/Coq10 [Daily Multivitamin Capsule] 1 tab PO DAILY 05/08 [History] [place]-3/Dha/Epa/Fish Oil [Fish Oil 1,000 mg Softgel] 1 tab PO DAILY 05/08/17 [ History] Ranitidine HCl [Zantac] 150 mg PO DAILY 05/08/17 [History] Simvastatin [Zocor] 40 mg PO BID 05/08/17 [History] Triamterene/Hydrochlorothiazid [Dyazide 37.5-25 Capsule] 1 tab PO DAILY [History] Clopidogrel [Plavix] 75 mg PO DAILY #30 tablet 05/11/17 [Rx] Allergies/Adverse Reactions: 3 Allergy/AdvReac Type Severity Reaction Status Date / Time No Known Allergies Allergy Verified 05/18/17 06:33 Date of admission: 05/18/17 08:23 Primary care physician: Milton Garcia Consults: 05/18/17 08:45 Consult to Physician [CONS] Routine Consulting Provider: Pushpa Neri Reason for Consult: dysphagia and odonophagia Time Notified: 08:45 Call Completed: Yes 05/18/17 16:31 Consult to ENT [CONS] Routine Consulting Provider: ENT Maria Del Rosario Reason for Consult: mandibular/jaw pain and unable to eat Time Notified: 16:31 Call Completed: No 05/18/17 16:33 Consult to ENT [CONS] Routine Consulting Provider: CHRIS Mix Reason for Consult: Painful swallowing. Call Completed: No 05/18/17 16:37 Consult to Speech Therapy [CONS] Stat Comment: Evaluate, develop and implement POC Reason for Consult: Swallowing eval / painful swallowing. Call Completed: No Discharging clinician: Chel Arriola Anticipated date of discharge: 05/20/17 - Patient Status Disposition: Home, Self-Care Condition: Good Functional capacity at discharge: independent ambulation Overall status at discharge: patient is progressing back to baseline - Discharge Instructions Follow Up With: Milton Garcia MD [Primary Care Provider] - 06/02/17 10:00 am - Diet and Activity Diet: low fat, low cholesterol, low salt diet, other (soft diet, thin liquids- no straws) Hospital course: Mr. Lopez is a 86 year old male with the above medical problems, who was admitted with dysphagia and oral pain. Dysphagia is thought to be Likely due to pharyngeal weakness and oral pain. Gastroenterology was consulted and patient underwent EGD which showed questionable stenosis of the esophagus inlet status post dilation, multiple gastric polyps and normal duodenum. ENT evaluation was completed including bedside laryngoscopy, with no acute abnormalities noted. X-ray mandible showed no acute abnormalities. Modified barium swallow study shows mild pharyngeal weakness with laryngeal penetration, mid to distal esophageal stasis, no marylou aspiration. Speech therapist has evaluated the patient, cleared for soft diet and thin liquids. Case discussed with speech therapist, patient is stable for discharge with outpatient speech therapy. Referral to be provided by his primary care physician. Plan of care explained in detail to patient's son at bedside, who is in a treatment with plan. - Time Spent with Patient Total time spent providing and/or coordinating discharge services: Greater than 30 minutes (40 min) - Constitutional Vitals: Temp Pulse Resp BP Pulse Ox 98.3 F 83 14 131/86 94 05/20/17 11:18 05/20/17 11:18 05/20/17 11:18 05/20/17 11:18 02/09/18 11:18 General appearance: Present: A&O X 2, answers questions appropriately - Cardiovascular Cardiovascular exam: Present: RRR, +S1, +S2. Absent: diastolic murmur, gallop, rubs, systolic murmur
== END 2017-05-20 14:00 | disposition home or self-care (01) ==
LOC: 3ANU 06:32 → EMEROO 06:32 → SUATTDRO 08:23 → 3ANU 08:37
PROVIDERS: ADMIT Internal Medicine Cardiovascular Disease; ATTEND Internal Medicine
PROC: ENDOEDS (2017-05-18 13:00)

== ENCOUNTER 2017-05-27 07:37 | Inpatient (IN) ==
--- NOTE | 2017-05-27 08:52 | Emergency Department Note ---
Disposition Clinical Impression: Peripheral neuropathy, Dementia, Generalized weakness, Hypertension, Hyperlipidemia Clinical Impression: (Ruled Out): Cellulitis, Herpes zoster, Gout Disposition: Admitted As Inpatient Condition: Fair Referrals: Milton Garcia MD [Primary Care Provider] - Forms: ED Satisfaction Letter Time of Disposition: 10:26 Extremity Problem HPI - General Chief complaint: ED Extremity Problem,Nontraumatic Stated complaint: BLE pain, swelling Source: patient Limitations: no limitations Nursing Notes Reviewed: Yes Vital Signs Reviewed: Yes - History of Present Illness HPI Narrative: Mr Lopez is an 86 yo M w/ PMH of HTN, MT not requiring intervention in 1980, EKG sinus rhythm w/ 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 This started in the middle of the night and caused him to have difficult time to sleep. This morning he called his son, who is seen bedside with patient, to bring him to [facility] ED because he was having difficulty walking with the pain. He describes the pain as pressure and sharp. Severity 5/10. He has swelling bilaterally that starts mid-lower leg, and mostly around his ankles and feet. He's not had swelling or peripheral neuropathy problems in the past. He also reports chronic cold extremities. He denies chest pain, SOB, PND, orthopnea, other extremity swelling, or difficulty urinating. He denies hx of diabetes or hyperlipidemia. Pt Subjective Complaint: extremity pain, extremity swelling, cold extremity Onset (ago): hour(s) (8) Consistency: constant Pain Scale: 5 Quality: sharp, other (pressure) Radiation: distal Improves with: nothing Worsens with: weight bearing, walking Associated symptoms: Reports: denies other symptoms, swelling - Related Data Home Medications Medication Instructions Recorded Confirmed Lidocaine HCl [Lidocaine HCl 15 ml MM TID PRN 05/08/17 05/18/17 Viscous] Mv-Mn/FA/Vit K/Lycop/Lut/Coq10 1 tab PO DAILY 05/08/17 05/18/17 [Daily Multivitamin Capsule] [place]-3/Dha/Epa/Fish Oil [Fish Oil 1 tab PO DAILY 05/08/17 05/18/17 1,000 mg Softgel] Ranitidine HCl [Zantac] 150 mg PO DAILY 05/08/17 05/18/17 Simvastatin [Zocor] 40 mg PO BID 05/08/17 05/18/17 Triamterene/Hydrochlorothiazid 1 tab PO DAILY 05/08/17 05/18/17 [Dyazide 37.5-25 Capsule] Previous Rx's Medication Instructions Recorded Clopidogrel [Plavix] 75 mg PO DAILY #30 tablet 05/11/17 Allergies Allergy/AdvReac Type Severity Reaction Status Date / Time No Known Allergies Allergy Verified 05/27/17 07:41 All systems ED: reviewed and negative except as stated. Review of Systems: As Per HPI Past Medical History - Past Medical History Medical history: Reports: cancer, dementia, GERD, hyperlipidemia, hypertension, myocardial infarction Surgical history: Reports: other Psychiatric history: Reports: no psych history - Social History Smoking Status: Never smoker Smokeless Tobacco Status: No Alcohol use: Reports: none Drug use: Reports: none Physical Exam - General Limitations: no limitations General appearance: alert, in no apparent distress - Head Head exam: atraumatic - Chest Chest inspection: Present: normal inspection - Respiratory Respiratory exam: Present: normal lung sounds bilaterally. Absent: respiratory distress, wheezes, stridor, accessory muscle use, prolonged expiratory phase - Cardiovascular Cardiovascular exam: Present: regular rate, normal rhythm, normal heart sounds - Abdominal Exam Abdominal exam: Absent: bruit, pulsatile mass - Extremities Exam Extremities exam: Present: tenderness - Expanded Lower Extremity Exam Hip/Pelvis exam: Present: normal inspection Upper leg exam: Present: normal inspection Knee exam: Present: normal inspection Lower leg exam: Present: full ROM, tenderness, swelling, other (cool to touch). Absent: abrasion, laceration, ecchymosis, deformity, crepitus, dislocation, erythema, palpable cord, Homans' sign, Achilles tendon intact Ankle exam: Present: full ROM, tenderness, swelling, other (cool to touch). Absent: abrasion, laceration, ecchymosis, deformity, crepitus, dislocation, erythema, tenderness over talofibular lig, anterior draw sign Foot/toe exam: Present: full ROM, tenderness, swelling, other (toe nails deformed). Absent: laceration, ecchymosis, deformity, crepitus, dislocation, erythema, amputation, puncture wound, foreign body, calcaneal tenderness, tenderness at base of 5th metatarsal, nail avulsion, subungual hematoma Neurovascular/Tendon exam: Present: extremity cold to touch - Neurological Exam Neurological exam: Present: alert, oriented X3 - Psychiatric Psychiatric exam: Present: normal affect, normal mood Course Course Narrative: Patient reports feeling good right now. His pain has remained unchanged since onset. Pain is only elicited upon touch or movement. Pain in lower extremities startes in midcalf down and is diffuse through extremities/non- localized. - Reevaluation(s) Reevaluation #1: sodium returned 124. Ordered Serum/urine OSM and Urine Na. Will admit patient at this time for hyponatremia workup. Time: 10:27 Vital Signs Temperature 98.5 F 05/27/17 07:38 Pulse Rate 86 05/27/17 07:38 Respiratory Rate 16 05/27/17 07:38 Blood Pressure 107/69 05/27/17 07:38 O2 Sat by Pulse Oximetry 97 05/27/17 07:38 Temperature 98.5 F 05/27/17 07:38 Pulse Rate 72 05/27/17 10:23 Respiratory Rate 16 05/27/17 10:23 Blood Pressure 119/74 05/27/17 10:23 O2 Sat by Pulse Oximetry 97 05/27/17 10:23 Oxygen Delivery Oxygen Delivery Room Air Extremity Problem, Nontraumati - MDM Narrative Medical decision making narrative: peripheral neuropathy caused electrolyte imbalance vs vascular insufficiency vs less likely cardiac related vs less likely diabetes related. BMP - pending. - Differential Diagnosis Likely: lower extremity edema, arterial vascular disorder. Unlikely: deep venous thrombosis, compartment syndrome - Medical Records Medical records reviewed: Yes I reviewed the patient's medical records. - Lab Data Lab results reviewed: Yes I reviewed the patient's lab results. Result diagrams: 05/27/17 08:52 Lab Results 05/27/17 Range/Units 08:52 Sodium 124 L (136-145) mEq/L Potassium 3.9 (3.5-5.1) mEq/L Chloride 91 L (98-107) mEq/L Carbon Dioxide 26 (23-29) mEq/L BUN 10 (8-23) mg/dL Creatinine 0.79 (0.70-1.30) mg/dL Est GFR ( Amer) > 60 (> 60) Est GFR (Non-Af Amer) > 60 (> 60) BUN/Creatinine Ratio 13 (6-26) Glucose 108 H (70-105) mg/dL Calculated Osmolality 258 L (280-300) Calcium 9.0 (8.6-10.3) mg/dL
[2017-05-27 09:20] LABS: Carbon Dioxide 26 mEq/L (23-29); Chloride 91 mEq/L (98-107); Potassium 3.9 mEq/L (3.5-5.1); Sodium 124 mEq/L (136-145)
[2017-05-27 09:25] LABS: BUN/Creatinine Ratio 13 (6-26); Blood Urea Nitrogen 10 mg/dL (8-23); Glucose 108 mg/dL (70-105); Osmolality,Calculated 258 (280-300); eGFR For African Americans > 60 (> 60); eGFR For Non-African Americans > 60 (> 60)
--- NOTE | 2017-05-27 10:19 | Emergency Department Note ---
START Narrative - START START: I examined this patient and my medical decision-making was reviewed with the FIRE CONTROL TECHNICIAN G/PA/Advanced Practice Nurse/Resident Physician. I agree with the documented findings, disposition and treatment plan as described except to the extent set forth below. Patient is normally active and he does have mild dementia and he did walk for 1 mile with his son last night and then this morning had discomfort in the lower extremities which is bilateral and some swelling bilateral lower extremities and this is new. The patient has had some numbness of the extremities in the past. I did review the patient's labs from today showing hyponatremia and this is not new so the patient will be admitted to the hospital for further evaluation and we do have labs pending for BNP as well as CBC 1019 Patient does have significant hyponatremia and labs are ordered to look for SIADH these results will be followed up as an inpatient and interpreted at that time. The patient is admitted. 1120
[2017-05-27 11:08] LABS: Hematocrit 41.8 % (37.5-50.1); Hemoglobin 14.2 g/dL (12.9-16.9); Mean Corpuscular Hemoglobin 29.5 pg (28.0-33.3); Mean Corpuscular Volume 86.7 fL (83.0-100.0); Mean Platelet Volume 8.6 fL (9.4-12.4); Platelet Count 320 K/mcL (140-400); Red Blood Count 4.82 M/mcL (4.19-5.50); Red Cell Distribution Width 13.2 % (11.5-14.5)
[2017-05-27] MEDS ORDERED: *HR* HYDROcodone/Acet 5/325 mg TABLET PO PRN (13:47)
[2017-05-27] MEDS ORDERED: Naloxone 0.4 MG/ML INJ IVP PRN (13:47)
[2017-05-27] MEDS ORDERED: Acetaminophen 325 MG TABLET PO PRN (13:47)
--- NOTE | 2017-05-27 14:12 | Internal Med History&Physical ---
<Stefan Bailon - Last Filed: 05/27/17 21:35> Date of Encounter: 05/27/17 Internal Medicine - H&P: HPI History of present illness: Mr. Lopez is a 86 year old male Internal Medicine - H&P: Meds Mv-Mn/FA/Vit K/Lycop/Lut/Coq10 [Daily Multivitamin Capsule] 1 tab PO DAILY 05/08 [History] [place]-3/Dha/Epa/Fish Oil [Fish Oil 1,000 mg Softgel] 1 tab PO DAILY 05/08/17 [ History] Ranitidine HCl [Zantac] 150 mg PO DAILY 05/08/17 [History] Simvastatin [Zocor] 40 mg PO DAILY 05/08/17 [History] Triamterene/Hydrochlorothiazid [Dyazide 37.5-25 Capsule] 1 tab PO DAILY [History] Clopidogrel [Plavix] 75 mg PO DAILY #30 tablet 05/11/17 [Rx] 3 Allergy/AdvReac Type Severity Reaction Status Date / Time No Known Allergies Allergy Verified 05/27/17 07:41 All Systems PM: A 10-system review of systems was performed and is negative for pertinent findings except as documented above in the HPI. - Constitutional Vitals: Temp Pulse Resp BP Pulse Ox 98.1 F 76 16 103/65 96 05/27/17 19:11 05/27/17 19:11 05/27/17 19:11 05/27/17 19:11 05/27/17 19:11 Internal Med - H&P Results - Labs CBC & Chem 7: 05/27/17 11:01 05/27/17 19:48 Labs: BMP 05/27/17 19:48 Sodium 125 L Potassium 3.8 Chloride 91 L Carbon Dioxide 30 H BUN 12 Creatinine 0.82 Glucose 111 H Calcium 8.9 - Attending Attestation I have personally performed a face to face evaluation on this patient. I have reviewed and agree with the care plan. History and Exam by me shows: Patient is confused. History is limited. He says he does not feel well but he cannot pinpoint what the problem was. Heart exam is regular rate and rhythm S1-S2 lungs are clear. Lower extremity 1 + pitting edema. Plan: For hypovolemic hyponatremia secondary to decreased oral intake we will continue with normal saline. Monitor sodium levels closely. Stefan Bailon MD <Juan Pablo Hines - Last Filed: 05/27/17 21:50> Date of Encounter: 05/27/17 Time of Encounter: 13:15 Assessment and Plan (1) Hyponatremia Current visit: Yes Status: Acute Acute on chronic hyponatremia caused by hypovolemia. Pt. recently hospitalized in late April for similar symptoms. Pt. and son report reduced PO intake of food and fluids. Hyponatremia causes patient to have bilateral pain in feet that he describes as numbness, tingling, and pins and needles sensation. Sodium 124 on admission. Chloride 91. Urine osmolality and urine sodium order to ED. 0.9 NS IV fluids @100 mL/HR for replacement. PO sodium BID PRN ordered. Monitor f/u labs for electrolyte status. Continuous telemetry. Falls/safety precautions , up with assist, bed rest w/bathroom privileges w/assist only d/t bilateral foot pain. Stair-step pain medication for pain mgmt. Pt. discussed w/Dr. Bailon who is in agreement w/plan of care. Pt. is high risk for further morbidity and falls d/t current/recurrent hyponatremia/electrolyte imbalance, current neuropathic pain in bilateral feet/increased risk for falls, hx of dysphagia, and risk factors. Inpatient. (2) Peripheral neuropathy Current visit: Yes Status: Acute Acute on chronic peripheral neuropathy r/t recent electrolyte imbalances/ hyponatremia. Pt. and son deny hx of DVT/PE. States pain is in bilateral feet and not in legs. Difficulty w/ambulation. Falls/safety precautions. 0.9 NS IV fluids for hyponatremia and hypochloremia. Monitor f/u labs. PO sodium BID PRN based on f/u labs in monitoring sodium status. Qualifiers: Peripheral neuropathy type: polyneuropathy, other Qualified Code(s): G62.89 - Other specified polyneuropathies (3) HTN (hypertension) Current visit: Yes Status: Chronic Hx of chronic HTN. Monitor pt. and VS. Continue pts. Dyazide. Qualifiers: Hypertension type: essential hypertension Qualified Code(s): I10 - Essential (primary) hypertension (4) HLD (hyperlipidemia) Current visit: Yes Status: Chronic Hx of chronic HLD. Lipid panel in a.m. labs. Continue pts. Simvastatin. Qualifiers: Hyperlipidemia type: pure hypercholesterolemia Qualified Code(s): E78.00 - Pure hypercholesterolemia, unspecified; E78.0 - Pure hypercholesterolemia (5) GERD (gastroesophageal reflux disease) Current visit: Yes Status: Chronic Hx of chronic GERD. IVP Zofran 4 mg Q8 for N/V. Continue pts. Zactac. Qualifiers: Esophagitis presence: esophagitis presence not specified Qualified Code(s) : K21.9 - Gastro-esophageal reflux disease without esophagitis (6) Dementia Current visit: Yes Status: Chronic Hx of chronic and mild dementia. Pts. son states pt. is currently at his baseline. Pt. not oriented to date or year, president, or where he is. Is able to recall long-term info such as bank account and some historical info. Discussion w/son (POA) about discussing Aricept and/or Namenda for pt. w/PCP at next appt. Falls/safety precautions. Pt. not aggressive or anxious, so no sitter required currently. Qualifiers: Dementia type: unspecified type Qualified Code(s): F03.90 - Unspecified dementia without behavioral disturbance (7) Dysphagia Current visit: Yes Status: Chronic Hx of chronic dysphagia. Pts. son reports hx of dysphagia and pt. was to see speech therapy but has not done so d/t recent hospitalizations. Speech therapy consult. Dysphagia screen. Aspiration precautions. Soft diet. Nutrition consult for PO supplementation (pt. prefers vanilla Ensure). Qualifiers: Dysphagia type: pharyngeal phase Qualified Code(s): R13.13 - Dysphagia, pharyngeal phase (8) Constipation Current visit: Yes Status: Chronic Hx of intermittent constipation. Monitor I&O. Miralax PRN. 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 Pts. son states pt. was seen for this and it was determined that no advanced intervention possible. Continue patient's viscous lidocaine for pain. Soft diet. (10) DVT prophylaxis Current visit: Yes Status: Acute Heparin 5000 units subcutaneous every 8 for DVT prophylaxis. Monitor patient for signs of bleeding. Internal Medicine - H&P: HPI Chief complaint: Bilateral foot pain and edema Admitted From: Emergency Dept Plans for Post Hospital Care: Home History of present illness: Mr. Lopez is a 86 year old male with medical hx of prostate cancer in 2007 ( resolved), dementia, GERD, HLD, HTN, previous myocardial infarction in 1980 with no placement of stents presents with chief complaint of bilateral foot pain and mild edema over the past 24 hours. Patient was recently discharged from [facility] due to generalized weakness and electrolyte imbalance in early May. Patient describes pain is neuropathic with pins and needles sensation and pressure. Also reports cold extremities. Up until recent admission in late April no previous occurrence. Patient also reports mandibular degeneration and lower jaw, hx of constipation, and history of dysphagia requiring soft diet. Patient denies recent illness, fever, chills, nausea, vomiting, headache, changes in vision, chest pain, palpitations, abdominal pain, diarrhea, unusual bleeding, dizziness, lightheadedness, pre- syncope, or syncope. Past Med Surg Social Fam HX - Past Medical History Source: patient, old records reviewed, obtained from family Medical history: cancer (Prostate in 2007 (resolved)), dementia, GERD, hyperlipidemia, hypertension, myocardial infarction (1980 w/o stent placement) Psychiatric history: no psych history - Past Surgical History Surgical History: other (Prostate reduction surgery and bilateral surgery on middle ear) - Social History Smoking Status: Never smoker Smokeless Tobacco Status: No Alcohol use: none Drug use: none Current living situation: Home, With Family Activity Level: Independent ambulation Recent Out of Country Travel Within the Last 8 Weeks: No Exposure or Possible Exposure to Illness During Travel: No - Family History Mother History Unknown: Yes Race: Family Member Ethnicity: Non- Living Status: Age at : 52 Cause of : CHF Hx Family Cardiac Disorders: Yes (CHF) Father Race: Family Member Ethnicity: Non- Living Status: Age at : 86 Cause of : Cirrhosis Hx Family Cardiac Disorders: Yes (TIAs) Hx Family Cancer: Yes (Prostate) Sister Race: Family Member Ethnicity: Non- Living Status: Age at : 50 Cause of : Breast cancer Hx Family Cancer: Yes (Breast) All Systems PM: A 10-system review of systems was performed and is negative for pertinent findings except as documented above in the HPI. - Constitutional Constitutional: as per HPI, no chills, no fever(s), no night sweats - EENT Eyes: no change in vision, no discharge, no pain, no photophobia Ears: no ear discharge, no ear pain, no tinnitus Nose, mouth and throat: no dysphagia, no nasal discharge, no neck pain, no sore throat - Breasts Breasts: as per HPI - Cardiovascular Cardiovascular ROS IM: as per HPI, edema (Mild in bilateral LEs), no chest pain , no diaphoresis, no dyspnea, no lightheadedness, no palpitations, no syncope - Respiratory Respiratory: as per HPI, cough (Chronic mild cough), no dyspnea, no wheezing, no excessive phlegm production - Gastrointestinal Gastrointestinal: as per HPI, constipation, no abdominal pain, no diarrhea, no hematemesis, no hematochezia, no melena, no nausea, no vomiting - Genitourinary Genitourinary ROS male: as per HPI - Musculoskeletal Musculoskeletal ROS IM: as per HPI, numbness (Bilateral feet), tingling ( Bilateral feet), other (Neuropathy sx in bilateral feet when electrolyte imbalances present) - Integumentary Integumentary IM: as per HPI, no rash, no unusual bruising - Neurological Neurological ROS: as per HPI, other (Mild dementia that son reports is pts. baseline), no confusion, no convulsions, no focal weakness, no numbness, no tingling, no tremor(s) - Psychiatric Psychiatric: as per HPI - Endocrine Endocrine IM: as per HPI - Hematologic/Lymphatic Hematologic/Lymphatic: no easy bruising - Allergic/Immunologic Allergic/Immunologic: as per HPI - Constitutional Vitals: Temp Pulse Resp BP Pulse Ox 98.9 F 71 14 129/92 96 05/27/17 12:27 05/27/17 12:27 05/27/17 12:27 05/27/17 12:27 05/27/17 12:27 General appearance: Present: cooperative, A&O X 2, no acute distress, answers questions appropriately (With multiple attempts) - Head Head exam: Present: atraumatic, normocephalic - Eye Eye exam: Present: PERRL, conjuntiva pink, sclera anicteric Pupils: Present: PERRL - ENT ENT exam: Present: normal exam - Neck Neck exam general surgery: Present: supple, trachea midline. Absent: lymphadenopathy - Respiratory Respiratory exam: Present: CTAB. Absent: accessory muscle use, rales, rhonchi, wheezes - Cardiovascular Cardiovascular exam: Present: RRR, +S1, +S2. Absent: diastolic murmur, gallop, rubs, systolic murmur - GI/Abdominal GI/Abdominal exam: Present: normal bowel sounds, soft, no peritoneal signs. Absent: distended, tenderness - Rectal Rectal exam: Present: deferred - Additional comments: exam deferred. - Extremities Exam Extremities exam: Present: pedal edema (Mild non-pitting edema in bilateral ankles and feet), warm, radial pulses palpable and symmetrical. Absent: calf tenderness, cyanotic - Back Exam Back exam: Present: normal inspection - Neurological Exam Neurological exam: Present: alert, altered - Psychiatric Psychiatric exam: Present: flat affect - Skin Skin exam: Present: dry, intact Internal Med - H&P Results - Labs CBC & Chem 7: 05/27/17 11:01 05/27/17 19:48
[2017-05-27] MEDS ORDERED: Ondansetron 4 MG/2 ML VIAL IVP PRN (14:30)
[2017-05-27] MEDS: 0.9 % Sodium Chloride 1,000 ML IVC SCH (15:20)
[2017-05-27 20:28] LABS: BUN/Creatinine Ratio 15 (6-26); Blood Urea Nitrogen 12 mg/dL (8-23); Calcium 8.9 mg/dL (8.6-10.3); Carbon Dioxide 30 mEq/L (23-29); Chloride 91 mEq/L (98-107); Glucose 111 mg/dL (70-105); Osmolality,Calculated 260 (280-300); Potassium 3.8 mEq/L (3.5-5.1); Sodium 125 mEq/L (136-145); eGFR For African Americans > 60 (> 60); eGFR For Non-African Americans > 60 (> 60)
[2017-05-27] MEDS: *HR* Heparin 5,000 UNIT/ML VIAL SQ SCH (20:55)
[2017-05-28] MEDS: 0.9 % Sodium Chloride 1,000 ML IVC SCH ×3 (01:30→22:16)
[2017-05-28 03:55] LABS: Basophils % 0.6 %; Eosinophils # 0.3 K/mcL (0.0-0.6); Eosinophils % 4.1 %; Hematocrit 37.6 % (37.5-50.1); Hemoglobin 12.8 g/dL (12.9-16.9); Immature Granulocytes % 0.3 % (0-4); Lymphocytes # 1.1 K/mcL (0.6-4.6); Lymphocytes % 17.2 %; Mean Corpuscular Hemoglobin 29.4 pg (28.0-33.3); Mean Corpuscular Volume 86.4 fL (83.0-100.0); Mean Platelet Volume 9.1 fL (9.4-12.4); Monocytes # 0.9 K/mcL (0.0-1.3); Monocytes % 13.6 %; Neutrophils # 4.1 K/mcL (1.6-8.9); Platelet Count 300 K/mcL (140-400); Red Blood Count 4.35 M/mcL (4.19-5.50); Red Cell Distribution Width 13.2 % (11.5-14.5); Segmented Neutrophils % 64.2 %
[2017-05-28 04:03] LABS: Hemoglobin A1C 5.6 %
[2017-05-28 04:36] LABS: Alanine Aminotransferase 8 Units/L (7-52); Albumin 3.4 g/dL (3.5-5.7); Albumin/Globulin Ratio 1.5 (1.1-2.2); Alkaline Phosphatase 47 Units/L (34-104); Aspartate Amino Transferase 12 Units/L (13-39); BUN/Creatinine Ratio 14 (6-26); Bilirubin,Total 0.5 mg/dL (0.3-1.0); Blood Urea Nitrogen 11 mg/dL (8-23); Calcium 8.8 mg/dL (8.6-10.3); Carbon Dioxide 28 mEq/L (23-29); Chloride 94 mEq/L (98-107); Chol/HDL Ratio 2.8 (0-4.9); Cholesterol 111 mg/dL (< 200); Globulin 2.2 g/dL (2.4-3.5); Glucose 103 mg/dL (70-105); HDL Cholesterol 40 mg/dL (40-59); LDL Cholesterol,Calculated 50 mg/dL (0-99); Magnesium 1.5 mg/dL (1.6-2.6); Osmolality,Calculated 266 (280-300); Phosphorous 3.7 mg/dL (2.7-4.5); Potassium 3.7 mEq/L (3.5-5.1); Sodium 128 mEq/L (136-145); Total Protein 5.6 g/dL (6.4-8.9); Triglycerides 107 mg/dL (< 150); eGFR For African Americans > 60 (> 60); eGFR For Non-African Americans > 60 (> 60)
[2017-05-28] MEDS: *HR* Heparin 5,000 UNIT/ML VIAL SQ SCH ×3 (05:03→22:16)
[2017-05-28] MEDS: Multivit/Ca/Min/Fe/FA 1 TAB TABLET PO SCH (08:17)
[2017-05-28] MEDS: Famotidine 20 MG TABLET PO SCH (08:17)
[2017-05-28] MEDS ORDERED: NON-FORMULARY MEDICATION 1 EACH EACH (Omega-3/Dha/Epa/Fish Oil [Fish Oil 1,000 Mg Softgel] PO SCH (09:00)
[2017-05-28] MEDS ORDERED: Magnesium Oxide 400 MG TABLET PO ONE (09:16)
--- NOTE | 2017-05-28 09:19 | Internal Med Progress Note ---
Date of Encounter: 05/28/17 Time of Encounter: 09:17 - Assessment and plan (1) Hyponatremia Current Visit: Yes Status: Acute Assessment and plan: Continue with IV fluid and this is likely secondary to inadequate oral intake. We will continue with IV fluids for now and check labs in the morning. Sodium is improving as it is up to 128 today. Hold Dyazide (2) Peripheral neuropathy Current Visit: Yes Status: Acute Assessment and plan: Unclear etiology. Had extensive workup last visit TSH, vitamin B12, folate levels, hemoglobin A1c control unremarkable. The CT was also negative. We will continue to monitor for now. Replete electrolytes. Qualifiers: Peripheral neuropathy type: polyneuropathy, other Qualified Code(s): G62.89 - Other specified polyneuropathies (3) Dementia Current Visit: Yes Status: Chronic Assessment and plan: Continue supportive care. Qualifiers: Dementia type: unspecified type Qualified Code(s): F03.90 - Unspecified dementia without behavioral disturbance (4) Dysphagia Current Visit: Yes Status: Chronic Assessment and plan: Had extensive workup in the past visit earlier this month with EGD showing possible esophageal inlet stenosis status post dilation. Also had laryngitis could be by ENT which was unremarkable. Barium swallow showed oral phase dysphagia. We will continue with modified diet and monitor. Qualifiers: Dysphagia type: pharyngeal phase Qualified Code(s): R13.13 - Dysphagia, pharyngeal phase (5) GERD (gastroesophageal reflux disease) Current Visit: Yes Status: Chronic Assessment and plan: Continue with Pepcid Qualifiers: Esophagitis presence: esophagitis presence not specified Qualified Code(s) : K21.9 - Gastro-esophageal reflux disease without esophagitis (6) Hypertension Current Visit: Yes Status: Chronic Assessment and plan: Blood pressure stable for now. We are holding his Dyazide secondary to hyponatremia. We will continue to monitor. Qualifiers: Hypertension type: essential hypertension Qualified Code(s): I10 - Essential (primary) hypertension (7) Prostate cancer Current Visit: No Status: Inactive Assessment and plan: Status post treatment (8) DVT prophylaxis Current Visit: Yes Status: Acute Assessment and plan: Heparin subcutaneous - Subjective Interval history: Patient was seen and examined. No acute events. Afebrile. No chest pain. Admitted with confusion/pins and needles sensation in the leg/dysphagia. Found to have hyponatremia with sodium level of 124 and admission. The patient was recently discharged about 10 days ago after hospitalization for dysphagia for which she underwent extensive workup including EGD and barium swallow and his CT head. CT head was negative. EGD showed mostly unremarkable findings except for some questionable stenosis of the esophagus inlet status post dilation. Had a barium swallow which showed pharyngeal muscle weakness. Had an ENT evaluation with laryngoscopy showing normal findings. - Constitutional Vitals: Temp Pulse Resp BP Pulse Ox 98.4 F 74 16 128/65 96 05/28/17 07:00 05/28/17 07:00 05/28/17 07:00 05/28/17 07:00 05/28/17 07:00 General appearance: Present: cooperative, A&O X 2, no acute distress, answers questions appropriately (With multiple attempts) Exam: GEN: NAD CVS: RRR. S1, S2, No m/r/g RESP: CTAB ABD: Soft, NT, ND, +BS EXT: No edema. 2+ DP. No rashes NEURO: Nonfocal Internal Medicine: Result - Labs CBC & Chem 7: 05/28/17 03:00 05/28/17 03:00 Labs: Short CBC 05/28/17 Range/Units 03:00 WBC 6.3 (4.3-11.1) K/mcL Hgb 12.8 L (12.9-16.9) g/dL Hct 37.6 (37.5-50.1) % Plt Count 300 (140-400) K/mcL Neutrophils # 4.1 (1.6-8.9) K/mcL BMP 05/27/17 05/28/17 19:48 03:00 Sodium 125 L 128 L Potassium 3.8 3.7 Chloride 91 L 94 L Carbon Dioxide 30 H 28 BUN 12 11 Creatinine 0.82 0.81 Glucose 111 H 103 Calcium 8.9 8.8 Liver Function 05/28/17 Range/Units 03:00 Total Bilirubin 0.5 (0.3-1.0) mg/dL AST 12 L (13-39) Units/L ALT 8 (7-52) Units/L Alkaline Phosphatase 47 (34-104) Units/L Albumin 3.4 L (3.5-5.7) g/dL Consult Discharge Plan - Plan Referrals: Milton Garcia MD [Primary Care Provider] -
[2017-05-28] MEDS: Lidocaine Viscous Oral Soln 15 ML SOLUTION MM PRN ×2 (13:24→23:11)
[2017-05-29 04:17] LABS: Basophils # 0.1 K/mcL (0.0-0.2); Basophils % 0.7 %; Eosinophils # 0.2 K/mcL (0.0-0.6); Eosinophils % 2.2 %; Hematocrit 37.8 % (37.5-50.1); Hemoglobin 12.8 g/dL (12.9-16.9); Immature Granulocytes % 0.3 % (0-4); Lymphocytes # 0.9 K/mcL (0.6-4.6); Lymphocytes % 12.2 %; Mean Corpuscular HGB Conc 33.9 g/dL (31.6-35.5); Mean Corpuscular Hemoglobin 29.5 pg (28.0-33.3); Mean Corpuscular Volume 87.1 fL (83.0-100.0); Mean Platelet Volume 8.8 fL (9.4-12.4); Monocytes # 0.9 K/mcL (0.0-1.3); Monocytes % 11.4 %; Neutrophils # 5.4 K/mcL (1.6-8.9); Platelet Count 315 K/mcL (140-400); Red Blood Count 4.34 M/mcL (4.19-5.50); Red Cell Distribution Width 13.1 % (11.5-14.5); Segmented Neutrophils % 73.2 %
[2017-05-29 04:35] LABS: Alanine Aminotransferase 9 Units/L (7-52); Albumin 3.2 g/dL (3.5-5.7); Albumin/Globulin Ratio 1.4 (1.1-2.2); Alkaline Phosphatase 48 Units/L (34-104); Aspartate Amino Transferase 13 Units/L (13-39); BUN/Creatinine Ratio 11 (6-26); Bilirubin,Total 0.5 mg/dL (0.3-1.0); Blood Urea Nitrogen 9 mg/dL (8-23); Calcium 8.6 mg/dL (8.6-10.3); Carbon Dioxide 27 mEq/L (23-29); Chloride 101 mEq/L (98-107); Globulin 2.3 g/dL (2.4-3.5); Glucose 107 mg/dL (70-105); Osmolality,Calculated 275 (280-300); Potassium 3.5 mEq/L (3.5-5.1); Sodium 133 mEq/L (136-145); Total Protein 5.5 g/dL (6.4-8.9); eGFR For African Americans > 60 (> 60); eGFR For Non-African Americans > 60 (> 60)
[2017-05-29] MEDS: *HR* Heparin 5,000 UNIT/ML VIAL SQ SCH (05:35)
[2017-05-29] MEDS: Famotidine 20 MG TABLET PO SCH (08:01)
[2017-05-29] MEDS: Multivit/Ca/Min/Fe/FA 1 TAB TABLET PO SCH (08:01)
--- NOTE | 2017-05-29 10:01 | Discharge Summary ---
Date of Encounter: 05/29/17 Time of Encounter: 09:59 - Discharge Diagnosis (1) Hyponatremia Priority: Primary Status: Acute (2) Peripheral neuropathy Priority: Primary Status: Acute Qualifiers: Peripheral neuropathy type: polyneuropathy, other Qualified Code(s): G62.89 - Other specified polyneuropathies (3) Dementia Priority: Secondary Status: Chronic Qualifiers: Dementia type: unspecified type Dementia behavioral disturbance: without behavioral disturbance Qualified Code(s): F03.90 - Unspecified dementia without behavioral disturbance (4) Dysphagia Priority: Primary Status: Chronic Qualifiers: Dysphagia type: pharyngeal phase Qualified Code(s): R13.13 - Dysphagia, pharyngeal phase (5) GERD (gastroesophageal reflux disease) Priority: Secondary Status: Chronic Qualifiers: Esophagitis presence: esophagitis presence not specified Qualified Code(s) : K21.9 - Gastro-esophageal reflux disease without esophagitis (6) Hypertension Priority: Secondary Status: Chronic Qualifiers: Hypertension type: essential hypertension Qualified Code(s): I10 - Essential (primary) hypertension (7) Prostate cancer Priority: Secondary Status: Inactive - Discharge Medications Home Medications: Mv-Mn/FA/Vit K/Lycop/Lut/Coq10 [Daily Multivitamin Capsule] 1 tab PO DAILY 05/08 [History] [place]-3/Dha/Epa/Fish Oil [Fish Oil 1,000 mg Softgel] 1 tab PO DAILY 05/08/17 [ History] Ranitidine HCl [Zantac] 150 mg PO DAILY 05/08/17 [History] Simvastatin [Zocor] 40 mg PO DAILY 05/08/17 [History] Triamterene/Hydrochlorothiazid [Dyazide 37.5-25 Capsule] 1 tab PO DAILY [History] Clopidogrel [Plavix] 75 mg PO DAILY #30 tablet 05/11/17 [Rx] Allergies/Adverse Reactions: 3 Allergy/AdvReac Type Severity Reaction Status Date / Time No Known Allergies Allergy Verified 05/27/17 07:41 Date of admission: 05/27/17 15:25 Primary care physician: Milton Garcia Consults: 05/28/17 09:16 Consult to Occupational Therapy [CONS] Routine Comment: Evaluate, develop and implement POC Reason for Consult: therapy/placement needs Consult to Physical Therapy [CONS] Routine Comment: Evaluate, develop and implement POC Reason for Consult: PT eval - Patient Status Disposition: Home, Self-Care Condition: Fair Overall status at discharge: patient is progressing back to baseline - Discharge Instructions Follow Up With: Milton Garcia MD [Primary Care Provider] - (prior appt for 06/02/17) - Diet and Activity Activity: increase activity as tolerated (nectar thickened diet) Diet: regular diet Hospital course: Mr. Lopez is a 86 year old male with medical hx of prostate cancer in 2007 ( resolved), dementia, GERD, HLD, HTN, previous myocardial infarction in 1980 with no placement of stents presented with chief complaint of bilateral foot pain and mild edema over the past 24 hours as well as weakness. He was found to have electrolyte abnormalities mainly hyponatremia. Patient was recently discharged from [facility] due to generalized weakness and electrolyte imbalance in early May. The patient has a history of dysphagia that was worked up his last visit a couple weeks ago. He at the time had underwent extensive workup including EGD and barium swallow and his CT head. CT head was negative. EGD showed mostly unremarkable findings except for some questionable stenosis of the esophagus inlet status post dilation. Had a barium swallow which showed pharyngeal muscle weakness. Had an ENT evaluation with laryngoscopy showing normal findings. This time around he was admitted to the hospital service and was put IV fluid for hydration. He was put on his modified diet that he was on discharge last time. His sodium corrected nicely. I spoke to son about encouraging by mouth intake and recommended speech follow-up for which they are is trying to set up with his PCP. He has an appointment with his PCP on (in 4 days). Regarding his feeling of pins and needles in his feet and etiology remains unclear. He had extensive workup last visit TSH, vitamin B12, folate levels, hemoglobin A1c control unremarkable. The CT was also negative. Those feelings resolved while he was hospitalized and he only mentioned then to the admitting physician. I asked him if he felt those and presence of his son and he does not have any feelings like that. Patient was stable for discharge on 05/29/2017. He does have a son who lives right next to him. He also has another son who checks on him at least 3-4 times a week. The patient at baseline is very independent. I did stress the need for encouraging by mouth intake and having speech follow-ups. - Time Spent with Patient Total time spent providing and/or coordinating discharge services: Greater than 30 minutes - Constitutional Vitals: Temp Pulse Resp BP Pulse Ox 98.0 F 76 14 121/65 96 05/29/17 07:00 05/29/17 07:00 05/29/17 07:00 05/29/17 07:00 05/29/17 07:00 General appearance: Present: cooperative, A&O X 2, no acute distress, answers questions appropriately (With multiple attempts) Exam: GEN: NAD CVS: RRR. S1, S2, No m/r/g RESP: CTAB ABD: Soft, NT, ND, +BS EXT: No edema. 2+ DP. No rashes NEURO: Nonfocal
--- NOTE | 2017-05-29 10:03 | Physician Discharge Referral ---
- Diagnosis (1) Hyponatremia Priority: Primary Status: Acute (2) Peripheral neuropathy Priority: Primary Status: Acute (3) Dementia Priority: Secondary Status: Chronic (4) Dysphagia Priority: Primary Status: Chronic (5) GERD (gastroesophageal reflux disease) Priority: Secondary Status: Chronic (6) Hypertension Priority: Secondary Status: Chronic (7) Prostate cancer Priority: Secondary Status: Inactive - Respiratory Orders Smoking Cessation: Smoking cessation has been advised. For more information, call the [place] Tobacco Quit Line at 1-918-ZMKB-NOW. - Services Needed Following services are medically necessary services: Physical Therapy, Speech Therapy - Transfer Medications Home Medications: Mv-Mn/FA/Vit K/Lycop/Lut/Coq10 [Daily Multivitamin Capsule] 1 tab PO DAILY 05/08 [History] [place]-3/Dha/Epa/Fish Oil [Fish Oil 1,000 mg Softgel] 1 tab PO DAILY 05/08/17 [ History] Ranitidine HCl [Zantac] 150 mg PO DAILY 05/08/17 [History] Simvastatin [Zocor] 40 mg PO DAILY 05/08/17 [History] Triamterene/Hydrochlorothiazid [Dyazide 37.5-25 Capsule] 1 tab PO DAILY [History] Clopidogrel [Plavix] 75 mg PO DAILY #30 tablet 05/11/17 [Rx] Allergies/Adverse Reactions: 3 Allergy/AdvReac Type Severity Reaction Status Date / Time No Known Allergies Allergy Verified 05/27/17 07:41 Certification: Further, I certify that my clinical findings support that this patient is homebound (i.e. absences from home require considerable and taxing effort and are for medical reasons or mandaeism services or infrequently or short duration when for other reasons) because: Homebound Reason: Patient requires assistance of a person or device to safely leave home Attestation: My signature below is to certify that this patient is under my care and that I, or nurse practitioner, or a physician's acute care nursing assistant working with me, has a face-to -face encounter with this patient.
[2017-05-29 10:32] VITALS: BP 106/68
[2017-05-29] MEDS: Lidocaine Viscous Oral Soln 15 ML SOLUTION MM PRN (11:28)
--- NOTE | 2017-06-01 02:05 | Electrocardiograph Report ---
[address] [address] Test Date: 2017-05-27 Pat Name: Trevor Lopez Department: 112 Room: 2A16 Gender: M Welt Treater: MARIANELA : 1930 Requested By: Charity Emerson Order Number: [id number] Reading MD: Talia Lackey Measurements Intervals [place] Rate: 71 P: 23 NC: 261 QRS: 21 QRSD: 79 T: 38 QT: 365 QTc: 387 Interpretive Statements SINUS RHYTHM WITH FIRST DEGREE AV BLOCK RIGHT ATRIAL ENLARGEMENT LEFT ATRIAL ENLARGEMENT POSSIBLE RIGHT VENTRICULAR CONDUCTION DELAY NONSPECIFIC T-WAVE ABNORMALITY V2 not suitable for interpretation Electronically Signed On 06-01-2017 2:03:54 EST by Talia Lackey
== END 2017-05-29 12:03 | disposition home or self-care (01) | DRG 641 ==
LOC: 2ANU 07:37 → EMEROO 07:37 → 2ANU 11:46
PROVIDERS: ADMIT Registered Nurse; ATTEND Registered Nurse

== ENCOUNTER 2020-09-18 11:20 | Inpatient (IN) ==
[2020-09-18] MEDS ORDERED: Isovue-370 500 ML BOTTLE IVP ONE (11:40)
[2020-09-18 12:05] LABS: Hematocrit 38.8 % (37.5-50.1); Hemoglobin 12.3 g/dL (12.9-16.9); Mean Corpuscular HGB Conc 31.7 g/dL (31.6-35.5); Mean Corpuscular Hemoglobin 28.5 pg (28.0-33.3); Mean Corpuscular Volume 89.8 fL (83.0-100.0); Mean Platelet Volume 9.2 fL (9.4-12.4); Platelet Count 278 K/mcL (140-400); Red Blood Count 4.32 M/mcL (4.19-5.50); Red Cell Distribution Width 14.1 % (11.5-14.5); White Blood Count 7.2 K/mcL (4.3-11.1)
[2020-09-18 12:15] LABS: INR 1.1; Prothrombin Time 12.5 Seconds (9.4-12.1)
[2020-09-18 12:18] LABS: Activated Partial Thrombo Time 28.6 Seconds (26.0-36.0)
[2020-09-18 12:22] LABS: BUN/Creatinine Ratio 22 (6-26); Blood Urea Nitrogen 24 mg/dL (8-23); Carbon Dioxide 28 mEq/L (23-29); Chloride 105 mEq/L (98-107); Glucose 101 mg/dL (70-105); Osmolality,Calculated 290 (280-300); Potassium 4.1 mEq/L (3.5-5.1); Sodium 138 mEq/L (136-145); eGFR For African Americans > 60 (> 60); eGFR For Non-African Americans > 60 (> 60)
[2020-09-18 12:24] LABS: Troponin I < 0.03 ng/mL (< 0.04)
[2020-09-18] MEDS ORDERED: Naloxone 0.4 MG/ML INJ IVP PRN (13:18)
[2020-09-18] MEDS ORDERED: Ondansetron 4 MG/2 ML VIAL IVP PRN (13:18)
[2020-09-18 14:47] LABS: Phosphorous 3.7 mg/dL (2.7-4.5)
[2020-09-19 03:21] LABS: Basophils # 0.1 K/mcL (0.0-0.2); Basophils % 0.8 %; Eosinophils # 0.1 K/mcL (0.0-0.6); Eosinophils % 1.7 %; Hematocrit 43.9 % (37.5-50.1); Immature Granulocytes % 0.2 % (0-4); Lymphocytes % 30.6 %; Mean Corpuscular HGB Conc 31.9 g/dL (31.6-35.5); Mean Corpuscular Hemoglobin 28.6 pg (28.0-33.3); Mean Corpuscular Volume 89.8 fL (83.0-100.0); Mean Platelet Volume 9.6 fL (9.4-12.4); Monocytes # 0.7 K/mcL (0.0-1.3); Monocytes % 10.6 %; Neutrophils # 3.6 K/mcL (1.6-8.9); Platelet Count 207 K/mcL (140-400); Red Blood Count 4.89 M/mcL (4.19-5.50); Red Cell Distribution Width 13.9 % (11.5-14.5); Segmented Neutrophils % 56.1 %; White Blood Count 6.4 K/mcL (4.3-11.1)
[2020-09-19 03:52] LABS: BUN/Creatinine Ratio 21 (6-26); Blood Urea Nitrogen 20 mg/dL (8-23); Carbon Dioxide 23 mEq/L (23-29); Chloride 105 mEq/L (98-107); Cholesterol 184 mg/dL (< 200); Glucose 89 mg/dL (70-105); Osmolality,Calculated 284 (280-300); Potassium 4.3 mEq/L (3.5-5.1); Sodium 136 mEq/L (136-145); Troponin I < 0.03 ng/mL (< 0.04); eGFR For African Americans > 60 (> 60); eGFR For Non-African Americans > 60 (> 60)
[2020-09-19 03:53] LABS: Calcium 8.9 mg/dL (8.6-10.3); Chol/HDL Ratio 5.1 (0-4.9); HDL Cholesterol 36 mg/dL (40-59); LDL Cholesterol,Calculated 134 mg/dL (< 100); Triglycerides 72 mg/dL (< 150)
[2020-09-19 05:14] LABS: Estimated Average Glucose 120 mg/dl; Hemoglobin A1C 5.8 %
[2020-09-19] MEDS ORDERED: Perflutren Lipid Microsphere 1.3 ML in 0.9 % Sodium Chloride 8.7 ML IVP PRN (11:05)
[2020-09-19 11:52] LABS: Folate > 22.3 ng/mL (3.0-16.0); Vitamin B12 524 pg/mL (250-1100)
[2020-09-19] MEDS: Aspirin 81 MG TAB.CHEW PO SCH (12:01)
[2020-09-19] MEDS ORDERED: E-Z-HD (BARIUM SULF) SUSPENSION PO ONE (14:12)
[2020-09-19] MEDS ORDERED: E-Z-PAQUE (BARIUM SULF) SUSP 1 BOTTLE PO ONE (14:12)
[2020-09-19 14:56] LABS: Thyroid Stimulating Hormone 9.327 mcIU/mL (0.340-5.600)
[2020-09-20 01:28] LABS: Basophils % 0.2 %; Eosinophils % 0.4 %; Hematocrit 42.6 % (37.5-50.1); Hemoglobin 13.6 g/dL (12.9-16.9); Immature Granulocytes % 0.2 % (0-4); Lymphocytes # 2.1 K/mcL (0.6-4.6); Lymphocytes % 20.8 %; Mean Corpuscular HGB Conc 31.9 g/dL (31.6-35.5); Mean Corpuscular Volume 87.7 fL (83.0-100.0); Mean Platelet Volume 9.3 fL (9.4-12.4); Monocytes # 0.8 K/mcL (0.0-1.3); Platelet Count 292 K/mcL (140-400); Red Blood Count 4.86 M/mcL (4.19-5.50); Red Cell Distribution Width 14.2 % (11.5-14.5); Segmented Neutrophils % 70.4 %
[2020-09-20 01:44] LABS: BUN/Creatinine Ratio 21 (6-26); Blood Urea Nitrogen 21 mg/dL (8-23); Calcium 9.2 mg/dL (8.6-10.3); Carbon Dioxide 25 mEq/L (23-29); Chloride 104 mEq/L (98-107); Glucose 114 mg/dL (70-105); Osmolality,Calculated 288 (280-300); Sodium 137 mEq/L (136-145); White Blood Count 9.9 K/mcL (4.3-11.1); eGFR For African Americans > 60 (> 60); eGFR For Non-African Americans > 60 (> 60)
[2020-09-20] MEDS: Aspirin 81 MG TAB.CHEW PO SCH (08:20)
[2020-09-20 10:05] LABS: Triiodothyronine (T3) Total 0.61 ng/mL (0.87-1.78)
[2020-09-20] MEDS: Aspirin 325 MG TABLET PO SCH (10:25)
[2020-09-20] MEDS: Chlorhexidine Rinse 15 ML MOUTHWASH MM SCH (20:14)
[2020-09-20] MEDS: QUEtiapine Fumarate 25 MG TABLET PO SCH (20:14)
[2020-09-21] MEDS: Ampicillin/Sulbactam 3,000 MG in 0.9 % Sodium Chloride Mini Bag 100 ML IVPB SCH ×4 (00:47→17:06)
[2020-09-21 03:45] LABS: Basophils % 0.3 %; Eosinophils # 0.2 K/mcL (0.0-0.6); Eosinophils % 3.2 %; Hematocrit 40.2 % (37.5-50.1); Immature Granulocytes % 0.2 % (0-4); Lymphocytes # 2.1 K/mcL (0.6-4.6); Lymphocytes % 32.4 %; Mean Corpuscular HGB Conc 32.3 g/dL (31.6-35.5); Mean Corpuscular Hemoglobin 28.5 pg (28.0-33.3); Mean Corpuscular Volume 88.2 fL (83.0-100.0); Mean Platelet Volume 9.2 fL (9.4-12.4); Monocytes # 0.8 K/mcL (0.0-1.3); Monocytes % 11.6 %; Neutrophils # 3.5 K/mcL (1.6-8.9); Platelet Count 266 K/mcL (140-400); Red Blood Count 4.56 M/mcL (4.19-5.50); Red Cell Distribution Width 14.2 % (11.5-14.5); Segmented Neutrophils % 52.3 %; White Blood Count 6.6 K/mcL (4.3-11.1)
[2020-09-21 03:56] LABS: BUN/Creatinine Ratio 22 (6-26); Blood Urea Nitrogen 23 mg/dL (8-23); Calcium 8.8 mg/dL (8.6-10.3); Carbon Dioxide 25 mEq/L (23-29); Chloride 104 mEq/L (98-107); Glucose 120 mg/dL (70-105); Magnesium 1.9 mg/dL (1.6-2.6); Osmolality,Calculated 289 (280-300); Phosphorous 2.9 mg/dL (2.7-4.5); Potassium 3.8 mEq/L (3.5-5.1); Sodium 137 mEq/L (136-145); eGFR For African Americans > 60 (> 60); eGFR For Non-African Americans > 60 (> 60)
[2020-09-21] MEDS: *HR* Enoxaparin 40 MG/0.4 ML SYRINGE SQ SCH (05:19)
[2020-09-21] MEDS: carvediloL 6.25 MG TABLET PO SCH ×2 (09:40→17:06)
[2020-09-21] MEDS: Multivit/Ca/Min/Fe/FA 1 TAB TABLET PO SCH (09:40)
[2020-09-21] MEDS: Chlorhexidine Rinse 15 ML MOUTHWASH MM SCH ×2 (09:40→20:48)
[2020-09-21] MEDS: Aspirin 325 MG TABLET PO SCH (09:40)
[2020-09-21] MEDS: QUEtiapine Fumarate 25 MG TABLET PO SCH (20:47)
[2020-09-22] MEDS: Ampicillin/Sulbactam 3,000 MG in 0.9 % Sodium Chloride Mini Bag 100 ML IVPB SCH ×3 (00:39→11:39)
[2020-09-22] MEDS: *HR* Enoxaparin 40 MG/0.4 ML SYRINGE SQ SCH (05:29)
[2020-09-22 05:36] LABS: Basophils # 0.1 K/mcL (0.0-0.2); Basophils % 0.7 %; Eosinophils # 0.2 K/mcL (0.0-0.6); Eosinophils % 3.4 %; Hematocrit 40.8 % (37.5-50.1); Hemoglobin 13.2 g/dL (12.9-16.9); Immature Granulocytes % 0.3 % (0-4); Lymphocytes # 2.3 K/mcL (0.6-4.6); Lymphocytes % 32.1 %; Mean Corpuscular HGB Conc 32.4 g/dL (31.6-35.5); Mean Corpuscular Hemoglobin 28.8 pg (28.0-33.3); Mean Corpuscular Volume 89.1 fL (83.0-100.0); Mean Platelet Volume 9.3 fL (9.4-12.4); Monocytes # 0.8 K/mcL (0.0-1.3); Monocytes % 10.9 %; Neutrophils # 3.7 K/mcL (1.6-8.9); Platelet Count 248 K/mcL (140-400); Red Blood Count 4.58 M/mcL (4.19-5.50); Red Cell Distribution Width 14.3 % (11.5-14.5); Segmented Neutrophils % 52.6 %; White Blood Count 7.1 K/mcL (4.3-11.1)
[2020-09-22 05:57] LABS: Chloride 105 mEq/L (98-107); Sodium 138 mEq/L (136-145)
[2020-09-22 05:58] LABS: BUN/Creatinine Ratio 21 (6-26); Blood Urea Nitrogen 26 mg/dL (8-23); Calcium 8.9 mg/dL (8.6-10.3); Carbon Dioxide 28 mEq/L (23-29); Glucose 102 mg/dL (70-105); Magnesium 1.9 mg/dL (1.6-2.6); Osmolality,Calculated 291 (280-300); Phosphorous 3.3 mg/dL (2.7-4.5); eGFR For African Americans > 60 (> 60); eGFR For Non-African Americans 56 (> 60)
[2020-09-22] MEDS: carvediloL 6.25 MG TABLET PO SCH ×2 (09:07→16:39)
[2020-09-22] MEDS: Aspirin 325 MG TABLET PO SCH (09:07)
[2020-09-22] MEDS: Chlorhexidine Rinse 15 ML MOUTHWASH MM SCH ×2 (09:08→21:41)
[2020-09-22] MEDS: Multivit/Ca/Min/Fe/FA 1 TAB TABLET PO SCH (09:09)
[2020-09-22] MEDS: QUEtiapine Fumarate 25 MG TABLET PO SCH (21:37)
[2020-09-23 05:17] LABS: Basophils % 0.4 %; Eosinophils # 0.2 K/mcL (0.0-0.6); Eosinophils % 2.5 %; Hematocrit 40.9 % (37.5-50.1); Hemoglobin 13.1 g/dL (12.9-16.9); Immature Granulocytes % 0.4 % (0-4); Lymphocytes # 1.8 K/mcL (0.6-4.6); Lymphocytes % 21.1 %; Mean Corpuscular Hemoglobin 28.2 pg (28.0-33.3); Mean Corpuscular Volume 88.1 fL (83.0-100.0); Mean Platelet Volume 9.7 fL (9.4-12.4); Monocytes # 0.9 K/mcL (0.0-1.3); Monocytes % 10.1 %; Neutrophils # 5.5 K/mcL (1.6-8.9); Platelet Count 275 K/mcL (140-400); Red Blood Count 4.64 M/mcL (4.19-5.50); Red Cell Distribution Width 14.5 % (11.5-14.5); Segmented Neutrophils % 65.5 %; White Blood Count 8.4 K/mcL (4.3-11.1)
[2020-09-23 05:38] LABS: BUN/Creatinine Ratio 21 (6-26); Blood Urea Nitrogen 25 mg/dL (8-23); Carbon Dioxide 25 mEq/L (23-29); Chloride 105 mEq/L (98-107); Glucose 108 mg/dL (70-105); Osmolality,Calculated 287 (280-300); Phosphorous 3.4 mg/dL (2.7-4.5); Sodium 136 mEq/L (136-145); eGFR For African Americans > 60 (> 60); eGFR For Non-African Americans 59 (> 60)
[2020-09-23] MEDS: *HR* Enoxaparin 40 MG/0.4 ML SYRINGE SQ SCH (05:53)
[2020-09-23 07:06] VITALS: BP 147/81
[2020-09-23] MEDS: Aspirin 325 MG TABLET PO SCH (09:22)
[2020-09-23] MEDS: Chlorhexidine Rinse 15 ML MOUTHWASH MM SCH (09:22)
[2020-09-23] MEDS: carvediloL 6.25 MG TABLET PO SCH (09:22)
[2020-09-23] MEDS: Multivit/Ca/Min/Fe/FA 1 TAB TABLET PO SCH (09:22)
== END 2020-09-23 13:48 | disposition home health service (06) | DRG 69 ==
LOC: 3BNU 11:20 → EMEROOARM 11:20 → SUATTDRO 13:22 → 3BNU 14:09 → SUATTDRO 09-20 19:43
PROVIDERS: ADMIT Pharmacist; ATTEND Internal Medicine